=== PATIENT | male | born 1945 | race Caucasian/White ===

== ENCOUNTER → 2016-04-09 | Outpatient (CLI) | payer MEDICARE, MEDICAID ==
--- NOTE | 2016-04-09 18:32 | REP ---
Bilateral shoulder series: Six views: History: Unspecified osteoarthritis. Comparison left shoulder views are from 12/27/2009. Findings: There is old deformity of the left glenoid with prominent glenohumeral osteophyte formation, joint space narrowing, and sclerosis on the left side. This is a little more prominent than on the 2009 prior study but not new. There is also some osteoarthritic narrowing and hypertrophy at the acromioclavicular joint which is unchanged. On the right there is mild osteoarthritis of the AC joint. Glenohumeral articulation shows only minimal osteophytic lipping at the inferior margin of the humeral head. Impression: Osteoarthritis left greater than right. Question post-traumatic change left acetabulum. Bilateral AC joint osteoarthritis. Signed by Johnathan Kelley MD 04/10/2016 08:04 A
== END ==
LOC: M RAD 16:14
PROVIDERS: ATTEND Family Medicine
DX: M19.011 Primary osteoarthritis, right shoulder (principal); M19.012 Primary osteoarthritis, left shoulder

== ENCOUNTER → 2016-04-20 | Outpatient (CLI) | payer MEDICARE, MEDICAID ==
--- NOTE | 2016-04-20 15:09 | DEXA ---
AP SPINE L1 - L4 1.259 0.2 0.0 LT FEMUR TOTAL 1.246 1.0 1.2 RT FEMUR TOTAL 1.226 0.9 1.1 TOTAL BODY TOTAL OTHER DUAL FEMUR FRAX* ASSESSMENT Risk factors: History of adult fracture. 10 year probability of fracture Major osteoporotic fracture 6.9 % Hip fracture 0.5 % COMMENTS: Normal bone densitometry of the spine and hips. FOLLOW-UP: Recommendation for the next bone density exam: 5 years. MTDD
== END ==
LOC: M WHC 10:31
PROVIDERS: ATTEND Family Medicine
DX: R29.890 Loss of height (principal)

== ENCOUNTER → 2016-10-13 | Outpatient (CLI) | payer MEDICAID, MEDICARE | LOC: M LAB 09:28 | PROVIDERS: ATTEND Family Medicine | DX: Z11.59 Encounter for screening for other viral diseases (principal); E11.9 Type 2 diabetes mellitus without complications | CPT/HCPCS: 36415; 83036; G0472 ==

== ENCOUNTER → 2017-03-15 | Outpatient (CLI) | payer MEDICARE, MEDICAID | LOC: M LAB 10:02 | PROVIDERS: ATTEND Family Medicine | DX: E11.9 Type 2 diabetes mellitus without complications (principal) ==

== ENCOUNTER → 2017-06-23 | Outpatient (CLI) | payer MEDICARE | LOC: M SMT 15:48 | DX: J06.9 Acute upper respiratory infection, unspecified (principal); J98.4 Other disorders of lung | CPT/HCPCS: 71046; 80053 ==

== ENCOUNTER → 2017-06-23 | Outpatient (REF) | payer MEDICARE ==
[2017-06-23 15:38] LABS: BASO % 0.3 % (0.0-1.0); EOS # 0.1 10^3/uL (0.0-0.50); EOS % 1.3 % (0.0-3.0); HEMATOCRIT 36.3 % (42.0-52.0); HEMOGLOBIN 11.7 g/dl (14.0-18.0); IMMATURE GRANULOCYTE % 0.3 % (0-3.0); LYMPH # 1.5 10^3/uL (1.5-4.5); LYMPH % 24.7 % (24.0-44.0); MEAN CORPUSCULAR HEMOGLOBIN 29.8 pg (27.0-33.0); MEAN CORPUSCULAR HGB CONC 32.2 g/dl (32.0-36.5); MEAN CORPUSCULAR VOLUME 92.4 fl (80.0-96.0); MONO # 0.8 10^3/uL (0.0-0.8); MONO % 12.7 % (0.0-5.0); NEUTROPHILS # 3.7 10^3/uL (1.8-7.7); NEUTROPHILS % 60.7 % (36.0-66.0); PLATELET COUNT, AUTOMATED 262 10^3/uL (150-450); RED BLOOD COUNT 3.93 10^6/uL (4.30-6.10); RED CELL DISTRIBUTION WIDTH 13.6 % (11.5-14.5)
[2017-06-23 15:55] LABS: ALBUMIN 3.9 GM/DL (3.2-5.2); ALBUMIN/GLOBULIN RATIO 1.18 (1.00-1.93); ALKALINE PHOSPHATASE 88 U/L (45-117); ALT/SGPT 32 U/L (12-78); ANION GAP 5 MEQ/L (8-16); AST/SGOT 29 U/L (7-37); BILIRUBIN,TOTAL 0.3 MG/DL (0.2-1.0); BLOOD UREA NITROGEN 12 MG/DL (7-18); CARBON DIOXIDE LEVEL 29 MEQ/L (21-32); CHLORIDE LEVEL 109 MEQ/L (98-107); CREATININE FOR GFR 0.88 MG/DL (0.70-1.30); GLOMERULAR FILTRATION RATE > 60.0 (>49); GLUCOSE, FASTING 92 MG/DL (70-100); POTASSIUM SERUM 3.6 MEQ/L (3.5-5.1); SODIUM LEVEL 143 MEQ/L (136-145); TOTAL PROTEIN 7.2 GM/DL (6.4-8.2)
== END ==
LOC: M SFHCPLAZ 13:44
DX: J06.9 Acute upper respiratory infection, unspecified (principal)
CPT/HCPCS: 80053

== ENCOUNTER → 2017-07-21 | Outpatient (CLI) | payer MEDICARE ==
[2017-07-21 11:11] LABS: ALBUMIN 3.7 GM/DL (3.2-5.2); ALBUMIN/GLOBULIN RATIO 1.16 (1.00-1.93); ALKALINE PHOSPHATASE 81 U/L (45-117); ALT/SGPT 21 U/L (12-78); ANION GAP 5 MEQ/L (8-16); AST/SGOT 19 U/L (7-37); BILIRUBIN,TOTAL 0.3 MG/DL (0.2-1.0); BLOOD UREA NITROGEN 18 MG/DL (7-18); CALCIUM LEVEL 8.8 MG/DL (8.8-10.2); CARBON DIOXIDE LEVEL 30 MEQ/L (21-32); CHLORIDE LEVEL 107 MEQ/L (98-107); CHOLESTEROL LEVEL 109 MG/DL (<200); CHOLESTEROL RISK RATIO 2.056 (<5); CREATININE FOR GFR 1.06 MG/DL (0.70-1.30); GLOMERULAR FILTRATION RATE > 60.0 (>42); GLUCOSE, FASTING 85 MG/DL (70-100); HDL CHOLESTEROL 53 MG/DL (>40); NON-HDL-C 56 MG/DL; POTASSIUM SERUM 4.6 MEQ/L (3.5-5.1); SODIUM LEVEL 142 MEQ/L (136-145); TOTAL PROTEIN 6.9 GM/DL (6.4-8.2); TRIGLYCERIDES LEVEL 65 MG/DL (<150)
[2017-07-21 11:19] LABS: CREATININE, URINE 62.6 MG/DL; MALB URINE SIEMENS 17.8 MG/L; MAU/CREAT RATIO 28.4 MCG/MG (0.0-30.0)
[2017-07-24 14:12] LABS: AMPHETAMINE SCREEN, URINE Negative ng/mL (Cutoff=1000); BARBITURATES SCREEN, URINE Negative ng/mL (Cutoff=200); BENZODIAZEPINES, URINE SCREEN Negative ng/mL (Cutoff=200); CANNABINOID SCREEN, URINE Negative ng/mL (Cutoff=20); COCAINE SCREEN, URINE Negative ng/mL (Cutoff=300); CREATININE, URINE 63.5 mg/dL (20.0-300.0); METHADONE, URINE SCREEN Negative ng/mL (Cutoff=300); OPIATE SCREEN, URINE See Final Results ng/mL (Cutoff=300); OPIATES, URINE Negative ng/mL (Cutoff=300); OXYCODONE URINE Positive (.); OXYCODONE, SCREEN, URINE See Final Results ng/mL (Cutoff=100); OXYCODONE, URINE CONFIRM 4300 ng/mL (Cutoff=100); OXYCODONE/OXYMORPH, URINE Positive (Cutoff=100); OXYMORPHONE, URINE Positive (.); OXYMORPHONE, URINE CONFIRM 197 ng/mL (Cutoff=100); PCP SCREEN, URINE Negative ng/mL (Cutoff=25)
== END ==
LOC: M LAB 10:08
DX: I10 Essential (primary) hypertension (principal)
CPT/HCPCS: 80053

== ENCOUNTER → 2017-07-23 | Outpatient (REF) | payer MEDICARE ==
[2017-07-23 15:46] LABS: HEMATOCRIT 35.4 % (42.0-52.0); HEMOGLOBIN 11.7 g/dl (13.5-17.5); MEAN CORPUSCULAR HEMOGLOBIN 30.2 pg (27.0-33.0); MEAN CORPUSCULAR HGB CONC 33.1 g/dl (32.0-36.5); MEAN CORPUSCULAR VOLUME 91.5 fl (80.0-96.0); PLATELET COUNT, AUTOMATED 261 10^3/uL (150-450); RED BLOOD COUNT 3.87 10^6/uL (4.30-6.10); RED CELL DISTRIBUTION WIDTH 13.2 % (11.5-14.5); WHITE BLOOD COUNT 6.9 10^3/uL (4.0-10.0)
[2017-07-23 15:58] LABS: PSA SCREENING 0.58 NG/ML (< 4.0)
[2017-07-23 16:15] LABS: ESTIMATED AVERAGE GLUCOSE 128 MG/DL (60-110); HEMOGLOBIN A1c 6.1 %
[2017-07-23 16:18] LABS: CREATININE, URINE 84.6 MG/DL; MALB URINE SIEMENS 13.1 MG/L; MAU/CREAT RATIO 15.4 MCG/MG (0.0-30.0)
== END ==
LOC: M SFHCPLAZ 14:13
DX: E11.9 Type 2 diabetes mellitus without complications (principal); D50.0 Iron deficiency anemia secondary to blood loss (chronic); D50.8 Other iron deficiency anemias; Z12.5 Encounter for screening for malignant neoplasm of prostate; Z80.42 Family history of malignant neoplasm of prostate
CPT/HCPCS: 83036

== ENCOUNTER → 2017-09-02 | Day surgery (SDC) | payer MEDICARE ==
[~2017-09-02] MED LIST: LIDOCAINE 2% INJ 100 MG/5 ML SDV (FOR ANES.) As Ordered; PROPOFOL 200 MG/20 ML VIAL As Ordered
[2017-09-02] MEDS: NS 1,000 ML IV (11:58)
== END | disposition home or self-care (01) ==
LOC: M OPP 11:17
DX: K62.5 Hemorrhage of anus and rectum (principal); D64.9 Anemia, unspecified; D12.3 Benign neoplasm of transverse colon; D12.5 Benign neoplasm of sigmoid colon; R94.31 Abnormal electrocardiogram [ECG] [EKG]; I50.9 Heart failure, unspecified; I11.0 Hypertensive heart disease with heart failure; E78.5 Hyperlipidemia, unspecified; E11.9 Type 2 diabetes mellitus without complications; K59.00 Constipation, unspecified; M19.90 Unspecified osteoarthritis, unspecified site; M06.9 Rheumatoid arthritis, unspecified; G47.30 Sleep apnea, unspecified; E66.9 Obesity, unspecified; L40.9 Psoriasis, unspecified; F32.9 Major depressive disorder, single episode, unspecified; G62.9 Polyneuropathy, unspecified; N40.1 Benign prostatic hyperplasia with lower urinary tract symptoms; Z87.891 Personal history of nicotine dependence; Z79.899 Other long term (current) drug therapy; Z79.84 Long term (current) use of oral hypoglycemic drugs; Z88.8 Allergy status to other drugs, medicaments and biological substances
CPT/HCPCS: 45385

== ENCOUNTER → 2017-12-29 | Outpatient (CLI) | payer MEDICARE, MEDICAID ==
[2017-12-29 13:50] LABS: BASO % 0.6 % (0.0-1.0); EOS # 0.2 10^3/uL (0.0-0.50); EOS % 2.3 % (0.0-3.0); HEMATOCRIT 34.9 % (42.0-52.0); HEMOGLOBIN 11.7 g/dl (13.5-17.5); IMMATURE GRANULOCYTE % 0.4 % (0-3.0); LYMPH # 1.7 10^3/uL (1.5-4.5); LYMPH % 24.8 % (24.0-44.0); MEAN CORPUSCULAR HEMOGLOBIN 30.8 pg (27.0-33.0); MEAN CORPUSCULAR HGB CONC 33.5 g/dl (32.0-36.5); MEAN CORPUSCULAR VOLUME 91.8 fl (80.0-96.0); MONO # 0.8 10^3/uL (0.0-0.8); NEUTROPHILS # 4.1 10^3/uL (1.8-7.7); NEUTROPHILS % 59.9 % (36.0-66.0); PLATELET COUNT, AUTOMATED 237 10^3/uL (150-450); RED CELL DISTRIBUTION WIDTH 12.8 % (11.5-14.5); WHITE BLOOD COUNT 6.8 10^3/uL (4.0-10.0)
== END ==
LOC: M LAB 13:16
DX: D50.0 Iron deficiency anemia secondary to blood loss (chronic) (principal)
CPT/HCPCS: 85025

== ENCOUNTER → 2018-09-13 | Outpatient (CLI) | payer MEDICARE, MEDICAID ==
[~2018-09-13] MED LIST changes: +ASPI81TA26 PO; +ATOR80TA59 PO; +DORZ2OPD OU; +DUTA1CAP PO; +IRON65TA PO; +LATA0.0013 OU; -LIDOCAINE 2% INJ 100 MG/5 ML SDV (FOR ANES.) As Ordered; +LISI10TA4 PO; +METF10004 PO; +OXYC-517; +OXYC20TA40 PO; +PARO15TA PO; -PROPOFOL 200 MG/20 ML VIAL As Ordered; +VITA-122 PO; +VITA-5 PO; +ZALE10CA PO
[2018-09-13 10:50] LABS: HEMATOCRIT 38.2 % (42.0-52.0); HEMOGLOBIN 12.7 g/dl (13.5-17.5)
[2018-09-13 11:10] LABS: HEMOGLOBIN A1c 6.9 %
[2018-09-13 11:23] LABS: BLOOD UREA NITROGEN 17 MG/DL (7-18); CALCIUM LEVEL 9.7 MG/DL (8.8-10.2); CARBON DIOXIDE LEVEL 34 MEQ/L (21-32); CHLORIDE LEVEL 102 MEQ/L (98-107); CREATININE FOR GFR 0.99 MG/DL (0.70-1.30); GLOMERULAR FILTRATION RATE > 60.0 (>42); GLUCOSE, FASTING 92 MG/DL (70-100); POTASSIUM SERUM 4.9 MEQ/L (3.5-5.1); SODIUM LEVEL 137 MEQ/L (136-145)
[2018-09-13 11:34] LABS: CREATININE, URINE 57.6 MG/DL; MALB URINE SIEMENS 5.1 MG/L; MAU/CREAT RATIO 8.8 MCG/MG (0.0-30.0)
== END ==
LOC: M LAB 09:49
PROVIDERS: ATTEND Family Medicine
DX: E11.9 Type 2 diabetes mellitus without complications (principal)

== ENCOUNTER → 2019-03-03 | Outpatient (REF) | payer MEDICARE, MEDICAID | LOC: M SFHCPLAZ 11:38 | PROVIDERS: ATTEND Family Medicine | DX: G89.4 Chronic pain syndrome (principal) ==

== ENCOUNTER → 2019-04-26 | Outpatient (CLI) | payer MEDICARE, MEDICAID ==
[2019-04-26 10:24] LABS: HEMATOCRIT 38.4 % (42.0-52.0); HEMOGLOBIN 12.3 g/dl (13.5-17.5); MEAN CORPUSCULAR HEMOGLOBIN 29.7 pg (27.0-33.0); MEAN CORPUSCULAR VOLUME 92.8 fl (80.0-96.0); PLATELET COUNT, AUTOMATED 228 10^3/uL (150-450); RED BLOOD COUNT 4.14 10^6/uL (4.30-6.10); WHITE BLOOD COUNT 6.2 10^3/uL (4.0-10.0)
[2019-04-26 10:51] LABS: ALBUMIN 3.8 GM/DL (3.2-5.2); ALT/SGPT 27 U/L (12-78); BILIRUBIN,TOTAL 0.3 MG/DL (0.2-1.0); BLOOD UREA NITROGEN 17 MG/DL (7-18); CALCIUM LEVEL 9.2 MG/DL (8.8-10.2); CARBON DIOXIDE LEVEL 34 MEQ/L (21-32); CHLORIDE LEVEL 104 MEQ/L (98-107); CHOLESTEROL LEVEL 113 MG/DL (<200); CHOLESTEROL RISK RATIO 2.511 (<5); CREATININE FOR GFR 1.01 MG/DL (0.70-1.30); GLOMERULAR FILTRATION RATE > 60.0 (>42); GLUCOSE, FASTING 100 MG/DL (70-100); HDL CHOLESTEROL 45 MG/DL (>40); LDL CHOLESTEROL 48 MG/DL (<100); NON-HDL-C 68 MG/DL; POTASSIUM SERUM 4.6 MEQ/L (3.5-5.1); SODIUM LEVEL 139 MEQ/L (136-145); TOTAL PROTEIN 7.1 GM/DL (6.4-8.2); TRIGLYCERIDES LEVEL 100 MG/DL (<150)
[2019-04-26 10:58] LABS: CREATININE, URINE 29.4 MG/DL; MALB URINE SIEMENS < 5.0 MG/L
[2019-04-26 12:14] LABS: HEMOGLOBIN A1c 6.3 %
== END ==
LOC: M LAB 09:45
PROVIDERS: ATTEND Family Medicine
DX: E11.42 Type 2 diabetes mellitus with diabetic polyneuropathy (principal); M15.9 Polyosteoarthritis, unspecified

== ENCOUNTER 2019-09-27 11:50 | Emergency (ER) | payer MEDICARE, MEDICAID ==
[~2019-09-27] VITALS: Ht 172.7 cm; Wt 96.7 kg
[2019-09-27 11:50] VITALS: BP 189/88
[~2019-09-27 11:50] MED LIST changes: -BENA25CA4 PO; -PRED20TA PO
[2019-09-27] MEDS ORDERED: PRED20TA PO (12:21)
[2019-09-27] MEDS ORDERED: BENA25CA4 PO (12:21)
[2019-09-27] MEDS ORDERED: predniSONE 20 MG TAB PO ONE (12:30)
[2019-09-27] MEDS ORDERED: LORATADINE 10 MG TAB PO ONE (12:30)
== END 2019-09-27 12:37 | disposition home or self-care (01) ==
LOC: M ED 11:50
DX: T63.441A Toxic effect of venom of bees, accidental (unintentional), initial encounter (principal)

== ENCOUNTER → 2019-09-27 | Outpatient (CLI) | payer MEDICARE, MEDICAID ==
[~2019-09-27] MED LIST changes: +BENA25CA4 PO; -DUTA1CAP PO; +DUTA1CAP2 PO; -PARO15TA PO; +PARO30TA4 PO; +PRED20TA PO
[2019-09-27 15:23] LABS: HEMATOCRIT 39.7 % (42.0-52.0); HEMOGLOBIN 12.9 g/dl (13.5-17.5); MEAN CORPUSCULAR HEMOGLOBIN 30.9 pg (27.0-33.0); MEAN CORPUSCULAR HGB CONC 32.5 g/dl (32.0-36.5); PLATELET COUNT, AUTOMATED 247 10^3/uL (150-450); RED BLOOD COUNT 4.18 10^6/uL (4.30-6.10)
[2019-09-27 15:51] LABS: HEMOGLOBIN A1c 6.9 %
[2019-09-27 15:52] LABS: CREATININE, URINE 16.8 MG/DL; MALB URINE SIEMENS 6.1 MG/L; MAU/CREAT RATIO 36.3 MCG/MG (0.0-30.0)
== END ==
LOC: M LAB 13:00
PROVIDERS: ATTEND Family Medicine
DX: E11.21 Type 2 diabetes mellitus with diabetic nephropathy (principal); D63.8 Anemia in other chronic diseases classified elsewhere

== ENCOUNTER → 2020-01-05 | Outpatient (REF) | payer MEDICARE, MEDICAID ==
[~2020-01-05] MED LIST changes: +BENA25CA4 PO; +PRED20TA PO
[2020-01-05 16:15] LABS: CREATININE, URINE 20.4 MG/DL; MALB URINE SIEMENS < 5.0 MG/L; MAU/CREAT RATIO 24.5 MCG/MG (0.0-30.0)
== END ==
LOC: M SFHCPLAZ 14:35
PROVIDERS: ATTEND Family Medicine
DX: E11.21 Type 2 diabetes mellitus with diabetic nephropathy (principal)

== ENCOUNTER → 2020-05-06 | Outpatient (CLI) | payer MEDICARE, MEDICAID ==
[~2020-05-06] MED LIST changes: +LISI10TA22 PO; -LISI10TA4 PO
[2020-05-06 11:02] LABS: HEMATOCRIT 37.7 % (42.0-52.0); HEMOGLOBIN 12.1 g/dl (13.5-17.5); MEAN CORPUSCULAR HEMOGLOBIN 30.3 pg (27.0-33.0); MEAN CORPUSCULAR HGB CONC 32.1 g/dl (32.0-36.5); MEAN CORPUSCULAR VOLUME 94.3 fl (80.0-96.0); PLATELET COUNT, AUTOMATED 249 10^3/uL (150-450); WHITE BLOOD COUNT 5.9 10^3/uL (4.0-10.0)
[2020-05-06 12:10] LABS: ALBUMIN 3.8 GM/DL (3.2-5.2); ALT/SGPT 26 U/L (12-78); BILIRUBIN,TOTAL 0.4 MG/DL (0.2-1.0); BLOOD UREA NITROGEN 15 MG/DL (7-18); CALCIUM LEVEL 9.2 MG/DL (8.8-10.2); CARBON DIOXIDE LEVEL 28 MEQ/L (21-32); CHLORIDE LEVEL 104 MEQ/L (98-107); CHOLESTEROL LEVEL 131 MG/DL (<200); CHOLESTEROL RISK RATIO 2.298 (<5); CREATININE FOR GFR 1.12 MG/DL (0.70-1.30); FERRITIN 34 NG/ML (26-388); GLOMERULAR FILTRATION RATE > 60.0 (>42); GLUCOSE, FASTING 91 MG/DL (70-100); HDL CHOLESTEROL 57 MG/DL (>40); IRON (FE) 87 UG/DL (65-175); LDL CHOLESTEROL 55 MG/DL (<100); NON-HDL-C 74 MG/DL; PERCENT SATURATION 24.6 % (19.7-50.0); POTASSIUM SERUM 4.7 MEQ/L (3.5-5.1); SODIUM LEVEL 140 MEQ/L (136-145); TOTAL IRON BINDING CAPACITY 353 UG/DL (250-450); TOTAL PROTEIN 7.1 GM/DL (6.4-8.2); TRIGLYCERIDES LEVEL 96 MG/DL (<150)
[2020-05-06 16:16] LABS: HEMOGLOBIN A1c 6.2 %
== END ==
LOC: M LAB 10:06
PROVIDERS: ATTEND Family Medicine
DX: E11.21 Type 2 diabetes mellitus with diabetic nephropathy (principal); I11.0 Hypertensive heart disease with heart failure; E78.1 Pure hyperglyceridemia; D63.8 Anemia in other chronic diseases classified elsewhere

== ENCOUNTER → 2020-05-08 | Outpatient (REF) | payer MEDICARE, MEDICAID ==
[2020-05-08 13:40] LABS: CREATININE, URINE 41.4 MG/DL; MALB URINE SIEMENS 5.2 MG/L; MAU/CREAT RATIO 12.5 MCG/MG (0.0-30.0)
== END ==
LOC: M LAB REF 12:54
PROVIDERS: ATTEND Family Medicine
DX: E11.21 Type 2 diabetes mellitus with diabetic nephropathy (principal)

== ENCOUNTER → 2020-10-08 | Outpatient (CLI) | payer MEDICARE, MEDICAID ==
[2020-10-08 21:30] LABS: HEMOGLOBIN A1c 6.3 %
== END ==
LOC: M LAB 18:14
PROVIDERS: ATTEND Family Medicine
DX: E11.9 Type 2 diabetes mellitus without complications (principal)

== ENCOUNTER → 2021-04-24 | Outpatient (CLI) | payer MEDICARE, MEDICAID ==
[2021-04-24 17:34] LABS: HEMATOCRIT 36.4 % (42.0-52.0); HEMOGLOBIN 11.5 g/dl (13.5-17.5); MEAN CORPUSCULAR HEMOGLOBIN 29.8 pg (27.0-33.0); MEAN CORPUSCULAR HGB CONC 31.6 g/dl (32.0-36.5); MEAN CORPUSCULAR VOLUME 94.3 fl (80.0-96.0); PLATELET COUNT, AUTOMATED 249 10^3/uL (150-450); RED BLOOD COUNT 3.86 10^6/uL (4.30-6.10); WHITE BLOOD COUNT 6.8 10^3/uL (4.0-10.0)
[2021-04-24 17:47] LABS: ALT/SGPT 22 U/L (12-78); BILIRUBIN,TOTAL 0.3 MG/DL (0.2-1.0); BLOOD UREA NITROGEN 19 MG/DL (7-18); CALCIUM LEVEL 9.1 MG/DL (8.8-10.2); CARBON DIOXIDE LEVEL 30 MEQ/L (21-32); CHLORIDE LEVEL 104 MEQ/L (98-107); CHOLESTEROL LEVEL 120 MG/DL (<200); CHOLESTEROL RISK RATIO 2.307 (<5); GLOMERULAR FILTRATION RATE > 60.0 (>42); GLUCOSE, FASTING 86 MG/DL (70-100); HDL CHOLESTEROL 52 MG/DL (>40); LDL CHOLESTEROL 48 MG/DL (<100); NON-HDL-C 68 MG/DL; SODIUM LEVEL 137 MEQ/L (136-145); TOTAL PROTEIN 7.4 GM/DL (6.4-8.2); TRIGLYCERIDES LEVEL 100 MG/DL (<150)
[2021-04-24 17:52] LABS: CREATININE, URINE 15.2 MG/DL; MALB URINE SIEMENS < 5.0 MG/L; MAU/CREAT RATIO 32.8 MCG/MG (0.0-30.0)
[2021-04-24 18:30] LABS: HEMOGLOBIN A1c 6.1 %
== END ==
LOC: M LAB 16:16
PROVIDERS: ATTEND Family Medicine
DX: G89.4 Chronic pain syndrome (principal); E78.00 Pure hypercholesterolemia, unspecified

== ENCOUNTER → 2021-04-25 | Outpatient (REF) | payer MEDICARE, MEDICAID | LOC: M SFHCPLAZ 15:59 | PROVIDERS: ATTEND Family Medicine | DX: G89.4 Chronic pain syndrome (principal); M15.9 Polyosteoarthritis, unspecified; E11.21 Type 2 diabetes mellitus with diabetic nephropathy ==

== ENCOUNTER → 2022-09-18 | Outpatient (REF) | payer OTHER, MEDICAID | LOC: M SFHCPLAZ 17:31 | PROVIDERS: ATTEND Family Medicine | DX: E11.21 Type 2 diabetes mellitus with diabetic nephropathy (principal) ==

== ENCOUNTER 2023-07-22 12:40 | Emergency (ER) | payer OTHER, MEDICAID ==
[~2023-07-22] VITALS: Ht 172.7 cm; Wt 81.8 kg
[2023-07-22 13:22] LABS: BASO % 0.5 % (0.0-1.0); EOS # 0.1 10^3/uL (0.0-0.5); EOS % 1.3 % (0.0-3.0); HEMATOCRIT 37.8 % (42.0-52.0); HEMOGLOBIN 11.9 g/dl (13.5-17.5); LYMPH # 1.4 10^3/uL (1.5-5.0); LYMPH % 21.5 % (24.0-44.0); MEAN CORPUSCULAR HEMOGLOBIN 28.9 pg (27.0-33.0); MEAN CORPUSCULAR HGB CONC 31.5 g/dl (32.0-36.5); MEAN CORPUSCULAR VOLUME 91.7 fl (80.0-96.0); MONO # 0.5 10^3/uL (0.0-0.8); NEUTROPHILS # 4.3 10^3/uL (1.5-8.5); NEUTROPHILS % 68.2 % (36.0-66.0); PLATELET COUNT, AUTOMATED 234 10^3/uL (150-450); RED BLOOD COUNT 4.12 10^6/uL (4.30-6.10); WHITE BLOOD COUNT 6.3 10^3/uL (4.0-10.0)
[2023-07-22 13:49] LABS: CPK CREATINE PHOSPHOKINASE 303 U/L (46-171)
[2023-07-22 13:50] LABS: ALBUMIN 3.5 G/DL (3.2-5.2); ALKALINE PHOSPHATASE 81 U/L (46-116); ALT/SGPT 20 U/L (7.0-40); AST/SGOT 26 U/L (<34); BILIRUBIN,DIRECT 0.1 MG/DL (<0.4); BILIRUBIN,TOTAL 0.3 MG/DL (0.3-1.2); BLOOD UREA NITROGEN 22 MG/DL (9-23); CALCIUM LEVEL 9.2 MG/DL (8.3-10.6); CARBON DIOXIDE LEVEL 31 MMOL/L (20-31); CHLORIDE LEVEL 104 MMOL/L (98-107); CK-MB VALUE MASS 7.4 NG/ML (<3.6); CREATININE FOR GFR 0.98 MG/DL (0.70-1.30); GLOMERULAR FILTRATION RATE > 60.0 (>42); GLUCOSE, FASTING 111 MG/DL (74-106); MB/CK RELATIVE INDEX 2.44 (< OR =4); POTASSIUM SERUM 4.2 MMOL/L (3.5-5.1); SODIUM LEVEL 139 MMOL/L (136-145); TOTAL PROTEIN 6.5 G/DL (5.7-8.2)
[2023-07-22 13:51] LABS: THYROID STIMULATING HORMONE 0.818 uIU/ML (0.55-4.78)
[2023-07-22 13:52] LABS: FREE T4 1.19 NG/DL (0.89-1.76); INR 0.99; PARTIAL THROMBOPLASTIN TIME 27.2 SECONDS (24.8-34.2); PROTHROMBIN TIME 12.8 SECONDS (12.5-14.5)
[2023-07-22] MEDS: ONDANSETRON 4MG 2ML VIAL IV ONE (14:11)
[2023-07-22] MEDS: MECLIZINE 25 MG TABLET PO ONE (14:11)
[2023-07-22 14:56] LABS: C REACTIVE PROTEIN QUANTITATIV < 0.40 MG/DL (<1.0)
[2023-07-22 15:16] LABS: CK-MB VALUE MASS 7.1 NG/ML (<3.6)
[2023-07-22 15:18] LABS: MB/CK RELATIVE INDEX 2.29 (< OR =4)
[2023-07-22 15:24] LABS: PROCALCITONIN 0.05 ng/ml
[2023-07-22] MEDS: ALPRAZolam 0.5 MG TAB PO ONE (16:23)
[2023-07-22 18:08] VITALS: BP 163/67; TEMP 97.7; O2SAT 99
[2023-07-22] MEDS ORDERED: MECL-86 PO (18:22)
== END 2023-07-22 18:48 | disposition home or self-care (01) ==
LOC: EDBD 12:40 → M ED 12:40
DX: H81.10 Benign paroxysmal vertigo, unspecified ear (principal); I44.7 Left bundle-branch block, unspecified; I10 Essential (primary) hypertension; E78.5 Hyperlipidemia, unspecified; Z88.8 Allergy status to other drugs, medicaments and biological substances; Z79.1 Long term (current) use of non-steroidal anti-inflammatories (NSAID); Z79.84 Long term (current) use of oral hypoglycemic drugs; Z79.899 Other long term (current) drug therapy; Z79.52 Long term (current) use of systemic steroids
CPT/HCPCS: 70551; 71046; 80048; 80076; 82550; 82553; 84145; 84439; 84443; 84484; 85025; 85610; 85730; 86140; 87486; 87581; 87633; 87798; 93005; 93041; 94760; 96374; 99285; J2405

== ENCOUNTER 2023-12-27 11:27 | Observation (INO) | payer MEDICARE, MEDICAID ==
[~2023-12-27] VITALS: Ht 172.7 cm; Wt 88.2 kg
[~2023-12-27 11:27] MED LIST changes: +MECL-86 PO
[2023-12-27 12:26] LABS: BASO % 0.2 % (0.0-1.0); EOS % 0.2 % (0.0-3.0); HEMATOCRIT 41.3 % (42.0-52.0); HEMOGLOBIN 13.2 g/dl (13.5-17.5); LYMPH % 12.7 % (24.0-44.0); MEAN CORPUSCULAR VOLUME 90.8 fl (80.0-96.0); MONO # 0.7 10^3/uL (0.0-0.8); MONO % 8.1 % (2.0-8.0); NEUTROPHILS # 6.4 10^3/uL (1.5-8.5); NEUTROPHILS % 78.6 % (36.0-66.0); PLATELET COUNT, AUTOMATED 207 10^3/uL (150-450); RED BLOOD COUNT 4.55 10^6/uL (4.30-6.10); WHITE BLOOD COUNT 8.1 10^3/uL (4.0-10.0)
[2023-12-27 12:46] LABS: INR 1.09; PARTIAL THROMBOPLASTIN TIME 21.8 SECONDS (24.8-34.2); PROTHROMBIN TIME 13.7 SECONDS (12.5-14.5)
[2023-12-27 12:54] LABS: LIPASE 33 U/L (12-53)
[2023-12-27 12:56] LABS: ALBUMIN 3.6 G/DL (3.2-5.2); ALKALINE PHOSPHATASE 96 U/L (46-116); ALT/SGPT 23 U/L (7.0-40); AST/SGOT 23 U/L (<34); BILIRUBIN,DIRECT < 0.1 MG/DL (<0.4); BILIRUBIN,TOTAL 0.3 MG/DL (0.3-1.2); BLOOD UREA NITROGEN 20 MG/DL (9-23); CALCIUM LEVEL 9.5 MG/DL (8.3-10.6); CARBON DIOXIDE LEVEL 30 MMOL/L (20-31); CHLORIDE LEVEL 106 MMOL/L (98-107); CREATININE FOR GFR 1.04 MG/DL (0.70-1.30); GLOMERULAR FILTRATION RATE > 60.0 (>42); GLUCOSE, FASTING 115 MG/DL (74-106); POTASSIUM SERUM 4.1 MMOL/L (3.5-5.1); SODIUM LEVEL 141 MMOL/L (136-145); TOTAL PROTEIN 7.2 G/DL (5.7-8.2)
[2023-12-27] MEDS ORDERED: ISOVUE-370 76% 100ML VIAL As Ordered ONE (13:18)
[2023-12-27 13:30] LABS: CK-MB VALUE MASS 4.6 NG/ML (<3.6)
[2023-12-27 13:32] LABS: CPK CREATINE PHOSPHOKINASE 337 U/L (46-171); MB/CK RELATIVE INDEX 1.36 (< OR =4)
[2023-12-27] MEDS: ONDANSETRON 4MG 2ML VIAL IV ONE (14:05)
[2023-12-27 15:01] LABS: CK-MB VALUE MASS 3.6 NG/ML (<3.6); MB/CK RELATIVE INDEX 1.07 (< OR =4)
[2023-12-27 15:05] LABS: RSV AMPLIFICATION NEGATIVE (NEGATIVE)
[2023-12-27 18:00] LABS: CK-MB VALUE MASS 3.6 NG/ML (<3.6)
[2023-12-27 18:03] LABS: MB/CK RELATIVE INDEX 1.19 (< OR =4)
[2023-12-27] MEDS ORDERED: METH-1177 PO ×2 (18:42)
[2023-12-27] MEDS ORDERED: HOME MED LIST COMPLETE! XX SCH (18:45)
[2023-12-27] MEDS ORDERED: DEXTROSE 50% 50ML SYRINGE IV PRN (19:55)
[2023-12-27] MEDS ORDERED: GLUCOSE 4 GM CHEW PO PRN (19:55)
[2023-12-27] MEDS ORDERED: GLUCAGON INJ 1MG VIAL SC PRN (19:55)
[2023-12-27] MEDS ORDERED: MOM 30ML SUSPENSION UDC PO PRN (19:55)
[2023-12-27] MEDS ORDERED: MAALOX 30 ML SUSP *UDC PO PRN (19:55)
[2023-12-27] MEDS: NS 1,000 ML IV SCH (20:08)
[2023-12-27] MEDS: INSULIN LISPRO (NovoLOG) PER UNIT SC SCH (21:00)
[2023-12-27] MEDS: DOCUSATE SODIUM 100MG CAPSULE PO SCH (22:23)
[2023-12-27] MEDS: HEPARIN SOD (PORCINE) 5000UNITS/ML 1ML VIAL/SYRINGE SC SCH (22:24)
[2023-12-28] MEDS: ACETAMINOPHEN TAB 650MG DOSE (2X325MG) PO PRN (00:19)
[2023-12-28 05:28] LABS: HEMATOCRIT 38.7 % (42.0-52.0); HEMOGLOBIN 12.3 g/dl (13.5-17.5); MEAN CORPUSCULAR HEMOGLOBIN 28.9 pg (27.0-33.0); MEAN CORPUSCULAR HGB CONC 31.8 g/dl (32.0-36.5); MEAN CORPUSCULAR VOLUME 91.1 fl (80.0-96.0); PLATELET COUNT, AUTOMATED 196 10^3/uL (150-450); RED BLOOD COUNT 4.25 10^6/uL (4.30-6.10); WHITE BLOOD COUNT 7.9 10^3/uL (4.0-10.0)
[2023-12-28 05:50] LABS: ABG BASE EXCESS -0.4 (-2.0-2.0); ABG HCO3 24.6 MMOL/L (22.0-26.0); ABG O2 SATURATION 92.7 % (95.0-99.0); ABG PARTIAL PRESSURE CO2 41.6 mmHg (35.0-45.0); ABG PARTIAL PRESSURE O2 64.1 mmHg (75.0-100.0); ABG TOTAL CO2 25.8 MMOL/L (23.0-31.0); ABG pH (ARTERIAL) 7.389 UNITS (7.350-7.450)
[2023-12-28 05:53] LABS: ALBUMIN 3.1 G/DL (3.2-5.2); ALKALINE PHOSPHATASE 84 U/L (46-116); ALT/SGPT 20 U/L (7.0-40); AST/SGOT 19 U/L (<34); BILIRUBIN,TOTAL 0.3 MG/DL (0.3-1.2); BLOOD UREA NITROGEN 16 MG/DL (9-23); CALCIUM LEVEL 8.8 MG/DL (8.3-10.6); CARBON DIOXIDE LEVEL 28 MMOL/L (20-31); CHLORIDE LEVEL 107 MMOL/L (98-107); CREATININE FOR GFR 1.04 MG/DL (0.70-1.30); GLOMERULAR FILTRATION RATE > 60.0 (>42); GLUCOSE, FASTING 81 MG/DL (74-106); POTASSIUM SERUM 3.9 MMOL/L (3.5-5.1); SODIUM LEVEL 138 MMOL/L (136-145); TOTAL PROTEIN 6.4 G/DL (5.7-8.2)
[2023-12-28] MEDS: INSULIN LISPRO (NovoLOG) PER UNIT SC SCH (07:30)
[2023-12-28] MEDS: METHADONE 10MG TAB PO SCH ×2 (08:23→14:32)
[2023-12-28 14:10] VITALS: BP 140/65; TEMP 97.5; O2SAT 95
[2023-12-28 14:19] VITALS: BP 140/65; TEMP 97.5; O2SAT 95
[2023-12-28] MEDS: D5W/0.9% SODIUM CHLORIDE 1,000 ML IV SCH (14:20)
[2023-12-28 20:00] VITALS: BP 140/66; TEMP 97.7; O2SAT 96
[2023-12-28] MEDS: NYSTATIN 100,000 UNITS/GM TOPICAL PWD 15GM TOP SCH (21:00)
[2023-12-29] MEDS: ONDANSETRON 4MG TAB PO PRN (00:34)
[2023-12-29 04:00] VITALS: BP 141/61; TEMP 97.7; O2SAT 94
[2023-12-29 05:32] LABS: HEMATOCRIT 41.4 % (42.0-52.0); HEMOGLOBIN 12.6 g/dl (13.5-17.5); MEAN CORPUSCULAR HEMOGLOBIN 28.7 pg (27.0-33.0); MEAN CORPUSCULAR HGB CONC 30.4 g/dl (32.0-36.5); MEAN CORPUSCULAR VOLUME 94.3 fl (80.0-96.0); PLATELET COUNT, AUTOMATED 190 10^3/uL (150-450); RED BLOOD COUNT 4.39 10^6/uL (4.30-6.10); WHITE BLOOD COUNT 6.9 10^3/uL (4.0-10.0)
[2023-12-29 05:55] VITALS: BP 148/66
[2023-12-29 05:55] LABS: ALBUMIN 3.2 G/DL (3.2-5.2); ALKALINE PHOSPHATASE 92 U/L (46-116); ALT/SGPT 21 U/L (7.0-40); AST/SGOT 20 U/L (<34); BILIRUBIN,TOTAL 0.2 MG/DL (0.3-1.2); BLOOD UREA NITROGEN 21 MG/DL (9-23); CARBON DIOXIDE LEVEL 31 MMOL/L (20-31); CHLORIDE LEVEL 107 MMOL/L (98-107); CREATININE FOR GFR 1.12 MG/DL (0.70-1.30); GLOMERULAR FILTRATION RATE > 60.0 (>42); GLUCOSE, FASTING 94 MG/DL (74-106); POTASSIUM SERUM 4.5 MMOL/L (3.5-5.1); SODIUM LEVEL 141 MMOL/L (136-145); TOTAL PROTEIN 6.8 G/DL (5.7-8.2)
[2023-12-29 05:58] VITALS: BP_SYST 145; BP_SYST 147; BP_DIAS 64; BP_DIAS 65
[2023-12-29 06:00] VITALS: BP_SYST 145; BP_SYST 147; BP_SYST 148; BP_DIAS 64; BP_DIAS 65; BP_DIAS 66
[2023-12-29] MEDS: FLUBLOK(EGGFREE) TRIVAL(24-25) VACCINE PF 0.5ML SYRINGE 18YRS & OLDER IM.IMMUN ONE (08:34)
[2023-12-29] MEDS: DAPAGLIFLOZIN PROPANEDIOL 10MG TABLET (FARXIGA) PO SCH (09:34)
[2023-12-29] MEDS: CARVedilol 3.125 MG TAB PO SCH (09:39)
[2023-12-29] MEDS ORDERED: PILL CUTTER 1 EACH XX ONE (09:42)
[2023-12-29] MEDS: ENTRESTO 24-26MG TABLET (SACUBITRIL/VALSARTAN) PO SCH (09:44)
[2023-12-29 12:00] VITALS: BP 96/55; TEMP 96.6; O2SAT 90
[2023-12-29 19:58] VITALS: BP 132/52; TEMP 97.6; O2SAT 96
[2023-12-29] MEDS ORDERED: CARVedilol 3.125 MG TAB PO SCH (21:00)
[2023-12-29] MEDS ORDERED: ENTRESTO 24-26MG TABLET (SACUBITRIL/VALSARTAN) PO SCH (21:00)
[2023-12-29] MEDS: RAMELTEON 8 MG TAB (ROZEREM) PO SCH (21:25)
[2023-12-30 03:46] VITALS: BP 135/67; TEMP 97.3; O2SAT 98
[2023-12-30 05:54] LABS: HEMATOCRIT 39.1 % (42.0-52.0); HEMOGLOBIN 11.8 g/dl (13.5-17.5); MEAN CORPUSCULAR HEMOGLOBIN 28.4 pg (27.0-33.0); MEAN CORPUSCULAR HGB CONC 30.2 g/dl (32.0-36.5); MEAN CORPUSCULAR VOLUME 94.2 fl (80.0-96.0); PLATELET COUNT, AUTOMATED 193 10^3/uL (150-450); RED BLOOD COUNT 4.15 10^6/uL (4.30-6.10); WHITE BLOOD COUNT 5.8 10^3/uL (4.0-10.0)
[2023-12-30 06:19] LABS: ALBUMIN 2.8 G/DL (3.2-5.2); BILIRUBIN,TOTAL 0.2 MG/DL (0.3-1.2); CALCIUM LEVEL 8.8 MG/DL (8.3-10.6); CREATININE FOR GFR 1.33 MG/DL (0.70-1.30); GLOMERULAR FILTRATION RATE 55.7 (>42); POTASSIUM SERUM 4.3 MMOL/L (3.5-5.1); TOTAL PROTEIN 6.3 G/DL (5.7-8.2)
[2023-12-30] MEDS: VENLAFAXINE **XR** 37.5 MG CAPSULE PO SCH (09:10)
[2023-12-30 14:00] VITALS: BP 109/54; TEMP 97.3; O2SAT 94
[2023-12-30 19:59] VITALS: BP 114/53; TEMP 97.5; O2SAT 95
[2023-12-30] MEDS ORDERED: ENTR1TAB PO (20:09)
[2023-12-30] MEDS ORDERED: FARX1TAB3 PO (20:09)
[2023-12-30] MEDS ORDERED: COLA100C5 PO (20:09)
[2023-12-30] MEDS ORDERED: VENL37.598 PO (20:09)
[2023-12-31 04:00] VITALS: BP 125/55; TEMP 97.7; O2SAT 96
[2023-12-31 06:24] LABS: HEMATOCRIT 38.5 % (42.0-52.0); MEAN CORPUSCULAR HEMOGLOBIN 28.6 pg (27.0-33.0); MEAN CORPUSCULAR HGB CONC 31.2 g/dl (32.0-36.5); MEAN CORPUSCULAR VOLUME 91.7 fl (80.0-96.0); PLATELET COUNT, AUTOMATED 200 10^3/uL (150-450); WHITE BLOOD COUNT 5.9 10^3/uL (4.0-10.0)
[2023-12-31 07:01] LABS: ALBUMIN 2.8 G/DL (3.2-5.2); ALKALINE PHOSPHATASE 85 U/L (46-116); ALT/SGPT 16 U/L (7.0-40); AST/SGOT 11 U/L (<34); BILIRUBIN,TOTAL 0.2 MG/DL (0.3-1.2); BLOOD UREA NITROGEN 21 MG/DL (9-23); CALCIUM LEVEL 8.8 MG/DL (8.3-10.6); CARBON DIOXIDE LEVEL 31 MMOL/L (20-31); CHLORIDE LEVEL 105 MMOL/L (98-107); CREATININE FOR GFR 1.17 MG/DL (0.70-1.30); GLOMERULAR FILTRATION RATE > 60.0 (>42); GLUCOSE, FASTING 85 MG/DL (74-106); POTASSIUM SERUM 4.4 MMOL/L (3.5-5.1); SODIUM LEVEL 138 MMOL/L (136-145); TOTAL PROTEIN 6.1 G/DL (5.7-8.2)
[2023-12-31 08:20] VITALS: BP 128/59
== END 2023-12-31 12:19 | disposition home health service (06) ==
LOC: M ED 11:27 → EDBD 11:27 → M ED INP 19:51 → INTOOBSV 19:51 → M MSPAV 12-28 14:07
PROVIDERS: ADMIT Internal Medicine; ATTEND Internal Medicine
DX: R26.81 Unsteadiness on feet (principal); Z91.148 Patient's other noncompliance with medication regimen for other reason; R42 Dizziness and giddiness; J96.01 Acute respiratory failure with hypoxia; R53.1 Weakness; Z74.2 Need for assistance at home and no other household member able to render care; R10.9 Unspecified abdominal pain; E11.649 Type 2 diabetes mellitus with hypoglycemia without coma; I11.0 Hypertensive heart disease with heart failure; I50.22 Chronic systolic (congestive) heart failure; R94.4 Abnormal results of kidney function studies; F32.A Depression, unspecified; R45.89 Other symptoms and signs involving emotional state; F40.8 Other phobic anxiety disorders; G31.84 Mild cognitive impairment of uncertain or unknown etiology; G31.1 Senile degeneration of brain, not elsewhere classified; I67.82 Cerebral ischemia; M47.812 Spondylosis without myelopathy or radiculopathy, cervical region; R00.1 Bradycardia, unspecified; I44.7 Left bundle-branch block, unspecified; I49.3 Ventricular premature depolarization; M19.90 Unspecified osteoarthritis, unspecified site; L40.9 Psoriasis, unspecified; N40.0 Benign prostatic hyperplasia without lower urinary tract symptoms; F11.11 Opioid abuse, in remission; R29.6 Repeated falls; R51.9 Headache, unspecified; G47.00 Insomnia, unspecified; R11.0 Nausea; Z82.3 Family history of stroke; Z81.1 Family history of alcohol abuse and dependence; Z81.8 Family history of other mental and behavioral disorders; Z80.42 Family history of malignant neoplasm of prostate; Z81.3 Family history of other psychoactive substance abuse and dependence; Z80.3 Family history of malignant neoplasm of breast; Z82.0 Family history of epilepsy and other diseases of the nervous system; Z79.891 Long term (current) use of opiate analgesic; Z88.8 Allergy status to other drugs, medicaments and biological substances; Z87.891 Personal history of nicotine dependence
CPT/HCPCS: 36415; 36600; 70450; 70544; 70551; 71046; 71250; 72125; 74177; 80047; 80048; 80053; 80076; 81001; 82550; 82553; 82803; 83690; 83735; 83880; 84484; 85025; 85027; 85610; 85730; 87631; 93005; 93306; 96361; 96372; 96374; 97116; 97161; 97165; 97530; 97535; 99285; G0378; J2405; Q9967

== ENCOUNTER 2024-01-09 05:34 | Inpatient (IN) | payer MEDICARE, MEDICAID ==
[2024-01-09] VITALS (17 sets, daily range): BP systolic 109–147; BP diastolic 53–76; TEMP 97.3–97.9; O2SAT 88–98
[~2024-01-09] VITALS: Ht 174 cm; Wt 86.0 kg
[~2024-01-09 05:34] MED LIST changes: +COLA100C5 PO; +ENTR1TAB PO; +FARX1TAB3 PO; +METH-1177 PO; +VENL37.598 PO
[2024-01-09 06:07] LABS: ABG HCO3 22.6 MMOL/L (22.0-26.0); ABG O2 SATURATION 94.1 % (95.0-99.0); ABG PARTIAL PRESSURE CO2 52.3 mmHg (35.0-45.0); ABG STANDARD HCO3 20.3 MMOL/L. (22.0-26.0); ABG TOTAL CO2 24.2 MMOL/L (23.0-31.0); ABG pH (ARTERIAL) 7.253 UNITS (7.350-7.450)
[2024-01-09 06:28] LABS: BASO % 0.3 % (0.0-1.0); EOS # 0.2 10^3/uL (0.0-0.5); EOS % 1.5 % (0.0-3.0); HEMATOCRIT 40.4 % (42.0-52.0); HEMOGLOBIN 12.7 g/dl (13.5-17.5); LYMPH # 3.2 10^3/uL (1.5-5.0); LYMPH % 26.8 % (24.0-44.0); MEAN CORPUSCULAR HEMOGLOBIN 29.1 pg (27.0-33.0); MEAN CORPUSCULAR HGB CONC 31.4 g/dl (32.0-36.5); MEAN CORPUSCULAR VOLUME 92.7 fl (80.0-96.0); MONO # 1.1 10^3/uL (0.0-0.8); MONO % 9.5 % (2.0-8.0); NEUTROPHILS # 7.3 10^3/uL (1.5-8.5); NEUTROPHILS % 61.1 % (36.0-66.0); PLATELET COUNT, AUTOMATED 225 10^3/uL (150-450); RED BLOOD COUNT 4.36 10^6/uL (4.30-6.10); WHITE BLOOD COUNT 11.9 10^3/uL (4.0-10.0)
[2024-01-09 06:40] LABS: PROCALCITONIN 0.22 ng/ml
[2024-01-09 06:55] LABS: CK-MB VALUE MASS 2.1 NG/ML (<3.6); MB/CK RELATIVE INDEX 1.35 (< OR =4)
[2024-01-09] MEDS: NS 1,000 ML IV ONE (07:13)
[2024-01-09] MEDS ORDERED: DOXYCYCLINE HYCLATE 100 MG in DEXTROSE 5% (D5W) MINI-BAG PLU 100 ML IV ONE (07:20)
[2024-01-09] MEDS ORDERED: CEFEPIME HCL 2 GM in DEXTROSE 5% (D5W) ADV/MINI-BAG 50 ML IV ONE (07:20)
[2024-01-09] MEDS ORDERED: COMBIVENT RESPIMAT 100-20MCG INHALER 4GM INH SCH (07:35)
[2024-01-09] MEDS ORDERED: ENTR1TAB PO (07:40)
[2024-01-09] MEDS ORDERED: VENL37.598 PO (07:40)
[2024-01-09] MEDS ORDERED: FARX1TAB3 PO (07:40)
[2024-01-09] MEDS ORDERED: BUPR150T12 PO (07:40)
[2024-01-09] MEDS ORDERED: HOME MED LIST COMPLETE! XX SCH (07:45)
[2024-01-09] MEDS: AZITHROMYCIN INJ 500 MG, VIAL MATE ADAPTER 1 EACH in D5W 250 ML IV ONE (07:57)
[2024-01-09] MEDS: cefTRIAXone SOD 2 GM in DEXTROSE 5% (D5W) ADV/MINI-BAG 50 ML IV ONE (07:57)
[2024-01-09] MEDS: ALBUTEROL SULFATE 2.5MG/0.5ML INH NEB SOLN INH ONE (08:04)
[2024-01-09] MEDS: IPRATROPIUM 0.5MG/ALBUTEROL 2.5MG INH SOL UD 3ML (DUONEB) NEB ONE (08:04)
[2024-01-09 08:29] LABS: ALBUMIN 2.6 G/DL (3.2-5.2); BILIRUBIN,DIRECT 0.2 MG/DL (<0.4); BILIRUBIN,TOTAL 0.3 MG/DL (0.3-1.2); CALCIUM LEVEL 8.6 MG/DL (8.3-10.6); CK-MB VALUE MASS 2.9 NG/ML (<3.6); CREATININE FOR GFR 1.43 MG/DL (0.70-1.30); GLOMERULAR FILTRATION RATE 51.2 (>42); MB/CK RELATIVE INDEX 3.71 (< OR =4); POTASSIUM SERUM 4.1 MMOL/L (3.5-5.1); TOTAL PROTEIN 6.3 G/DL (5.7-8.2)
[2024-01-09] MEDS ORDERED: ISOVUE-370 76% 100ML VIAL As Ordered ONE (08:48)
[2024-01-09] MEDS: ASPIRIN 81MG CHEW TABLET PO ONE (09:14)
[2024-01-09 09:35] LABS: VENOUS BASE EXCESS -2.6 (-2.0-2.0); VENOUS HCO3 24.9 MMOL/L (23.0-27.0); VENOUS O2 SATURATION 86.3 % (60.0-80.0); VENOUS PARTIAL PRESSURE CO2 55.4 mmHg (38.0-50.0); VENOUS PARTIAL PRESSURE O2 56.4 mmHg (30.0-50.0); VENOUS STANDARD HCO3 22.1 MMOL/L; VENOUS TOTAL CO2 26.6 MMOL/L (24.0-28.0)
[2024-01-09 10:12] LABS: CK-MB VALUE MASS 4.2 NG/ML (<3.6)
[2024-01-09 10:13] LABS: MB/CK RELATIVE INDEX 5.18 (< OR =4)
[2024-01-09] MEDS: HEPARIN SOD (PORCINE) 5000UNITS/ML 1ML VIAL/SYRINGE SC SCH (13:29)
[2024-01-09] MEDS: FORMOTEROL FUMARATE 20 MCG/2 ML INHALATION SOLUTION (PERFOROMIST) INH ONE (14:14)
[2024-01-09] MEDS: BUDESONIDE 0.5 MG/2 ML INHALATION SUSPENSION NEB ONE (14:14)
[2024-01-09] MEDS ORDERED: PILL CUTTER 1 EACH XX ONE (16:04)
[2024-01-09] MEDS: DAPAGLIFLOZIN PROPANEDIOL 10MG TABLET (FARXIGA) PO SCH (16:10)
[2024-01-09] MEDS: METHADONE 10MG TAB PO SCH (16:10)
[2024-01-09] MEDS: VENLAFAXINE **XR** 37.5 MG CAPSULE PO SCH (16:10)
[2024-01-09] MEDS: buPROPion **XL** TABLET 150MG (WELLBUTRIN XL) PO SCH (16:10)
[2024-01-09] MEDS: ATORVASTATIN 20 MG TAB PO SCH (16:10)
[2024-01-09 17:29] LABS: MAGNESIUM LEVEL 2.4 MG/DL (1.8-2.4)
[2024-01-09] MEDS: ONDANSETRON 4MG 2ML VIAL IV ONE (18:00)
[2024-01-09] MEDS: MAG SULF 1GM/100ML (MAG RUN) 1 GM in IV 1 EA IV ONE (18:11)
[2024-01-09] MEDS: SYMBICORT 80/4.5MCG INHALER 6GM INH SCH (19:43)
[2024-01-09] MEDS: RAMELTEON 8 MG TAB (ROZEREM) PO PRN (21:45)
[2024-01-10] VITALS (11 sets, daily range): BP systolic 109–143; BP diastolic 55–69; TEMP 96.9–97.6; O2SAT 90–97
[2024-01-10] MEDS: ACETAMINOPHEN 325 MG TAB PO PRN (00:09)
[2024-01-10 04:36] LABS: VENOUS BASE EXCESS -2.3 (-2.0-2.0); VENOUS HCO3 24.8 MMOL/L (23.0-27.0); VENOUS O2 SATURATION 79.1 % (60.0-80.0); VENOUS PARTIAL PRESSURE CO2 53.2 mmHg (38.0-50.0); VENOUS PARTIAL PRESSURE O2 46.8 mmHg (30.0-50.0); VENOUS PH 7.287 UNITS (7.330-7.430); VENOUS STANDARD HCO3 22.2 MMOL/L; VENOUS TOTAL CO2 26.5 MMOL/L (24.0-28.0)
[2024-01-10 04:44] LABS: BASO % 0.1 % (0.0-1.0); HEMATOCRIT 34.7 % (42.0-52.0); HEMOGLOBIN 10.9 g/dl (13.5-17.5); LYMPH # 0.6 10^3/uL (1.5-5.0); LYMPH % 5.8 % (24.0-44.0); MEAN CORPUSCULAR HEMOGLOBIN 28.2 pg (27.0-33.0); MEAN CORPUSCULAR HGB CONC 31.4 g/dl (32.0-36.5); MEAN CORPUSCULAR VOLUME 89.9 fl (80.0-96.0); MONO # 0.6 10^3/uL (0.0-0.8); MONO % 5.4 % (2.0-8.0); NEUTROPHILS # 9.3 10^3/uL (1.5-8.5); NEUTROPHILS % 87.9 % (36.0-66.0); PLATELET COUNT, AUTOMATED 261 10^3/uL (150-450); RED BLOOD COUNT 3.86 10^6/uL (4.30-6.10); WHITE BLOOD COUNT 10.5 10^3/uL (4.0-10.0)
[2024-01-10 05:13] LABS: ALBUMIN 2.5 G/DL (3.2-5.2); BILIRUBIN,TOTAL 0.2 MG/DL (0.3-1.2); CALCIUM LEVEL 9.4 MG/DL (8.3-10.6); CREATININE FOR GFR 1.31 MG/DL (0.70-1.30); GLOMERULAR FILTRATION RATE 56.6 (>42); MAGNESIUM LEVEL 2.6 MG/DL (1.8-2.4); POTASSIUM SERUM 4.4 MMOL/L (3.5-5.1); TOTAL PROTEIN 6.3 G/DL (5.7-8.2)
[2024-01-10] MEDS: DOXYCYCLINE HYCLATE 100MG TABLET PO SCH (07:59)
[2024-01-10] MEDS: CEFDINIR 300 MG CAP (OMNICEF) PO SCH (08:00)
[2024-01-10] MEDS: METHADONE 10MG TAB PO SCH (08:00)
[2024-01-10] MEDS ORDERED: MAGNESIUM SULFATE IN WATER 2 GM in IV 1 EA IV PRN (17:10)
[2024-01-10 17:16] LABS: IONIZED CALCIUM 4.8 MG/DL (4.5-5.3)
[2024-01-10 17:47] LABS: CK-MB VALUE MASS 2.3 NG/ML (<3.6); MAGNESIUM LEVEL 2.6 MG/DL (1.8-2.4); MB/CK RELATIVE INDEX 3.48 (< OR =4); POTASSIUM SERUM 4.6 MMOL/L (3.5-5.1)
[2024-01-10 17:51] LABS: FREE T3 2.6 PG/ML (2.3-4.2); FREE T4 1.49 NG/DL (0.89-1.76); THYROID STIMULATING HORMONE 0.281 uIU/ML (0.55-4.78)
[2024-01-10 23:04] LABS: IONIZED CALCIUM 4.7 MG/DL (4.5-5.3)
[2024-01-10 23:32] LABS: MAGNESIUM LEVEL 2.4 MG/DL (1.8-2.4); POTASSIUM SERUM 5.3 MMOL/L (3.5-5.1)
[2024-01-11] VITALS (7 sets, daily range): BP systolic 142–166; BP diastolic 61–80; TEMP 96.9–98.3; O2SAT 94–97
[2024-01-11 04:47] LABS: IONIZED CALCIUM 4.8 MG/DL (4.5-5.3)
[2024-01-11 05:11] LABS: MAGNESIUM LEVEL 2.3 MG/DL (1.8-2.4); POTASSIUM SERUM 4.6 MMOL/L (3.5-5.1)
[2024-01-11 08:34] LABS: BASO % 0.2 % (0.0-1.0); EOS % 0.4 % (0.0-3.0); HEMATOCRIT 34.5 % (42.0-52.0); HEMOGLOBIN 10.8 g/dl (13.5-17.5); LYMPH # 1.5 10^3/uL (1.5-5.0); MEAN CORPUSCULAR HEMOGLOBIN 28.5 pg (27.0-33.0); MEAN CORPUSCULAR HGB CONC 31.3 g/dl (32.0-36.5); MONO # 0.6 10^3/uL (0.0-0.8); MONO % 5.8 % (2.0-8.0); NEUTROPHILS # 7.6 10^3/uL (1.5-8.5); NEUTROPHILS % 77.8 % (36.0-66.0); PLATELET COUNT, AUTOMATED 289 10^3/uL (150-450); RED BLOOD COUNT 3.79 10^6/uL (4.30-6.10); WHITE BLOOD COUNT 9.7 10^3/uL (4.0-10.0)
[2024-01-11 08:59] LABS: CK-MB VALUE MASS 1.6 NG/ML (<3.6)
[2024-01-11 09:00] LABS: BLOOD UREA NITROGEN 31 MG/DL (9-23); CALCIUM LEVEL 9.2 MG/DL (8.3-10.6); CARBON DIOXIDE LEVEL 30 MMOL/L (20-31); CHLORIDE LEVEL 107 MMOL/L (98-107); CREATININE FOR GFR 1.22 MG/DL (0.70-1.30); GLOMERULAR FILTRATION RATE > 60.0 (>42); GLUCOSE, FASTING 88 MG/DL (74-106); POTASSIUM SERUM 4.4 MMOL/L (3.5-5.1); SODIUM LEVEL 140 MMOL/L (136-145)
[2024-01-11] MEDS: SPIRONOLACTONE 6.25 MG PER 1/4 TAB PO SCH (09:00)
[2024-01-11] MEDS: ASPIRIN 81MG ENTERIC TABLET PO SCH (09:00)
[2024-01-11 09:05] LABS: CPK CREATINE PHOSPHOKINASE 56 U/L (46-171); MB/CK RELATIVE INDEX 2.85 (< OR =4)
[2024-01-11] MEDS: METHADONE 10MG TAB PO ONE ×2 (11:56→22:02)
[2024-01-11] MEDS: DEXTROSE 50% 50ML SYRINGE IV STA (12:42)
[2024-01-11] MEDS: VENLAFAXINE **XR** 37.5 MG CAPSULE PO SCH (13:00)
[2024-01-11] MEDS: lisinopriL 5 MG TAB PO SCH (22:05)
[2024-01-12] VITALS (7 sets, daily range): BP systolic 121–168; BP diastolic 58–77; TEMP 96.6–98.7; O2SAT 92–98
[2024-01-12] MEDS: DEXTROSE 50% 50ML SYRINGE IV STA (07:51)
[2024-01-12 08:05] LABS: IONIZED CALCIUM 3.6 MG/DL (4.5-5.3)
[2024-01-12 08:09] LABS: BASO % 0.5 % (0.0-1.0); EOS # 0.1 10^3/uL (0.0-0.5); EOS % 1.2 % (0.0-3.0); HEMATOCRIT 38.4 % (42.0-52.0); HEMOGLOBIN 11.8 g/dl (13.5-17.5); LYMPH # 1.9 10^3/uL (1.5-5.0); LYMPH % 23.6 % (24.0-44.0); MEAN CORPUSCULAR HEMOGLOBIN 28.6 pg (27.0-33.0); MEAN CORPUSCULAR HGB CONC 30.7 g/dl (32.0-36.5); MEAN CORPUSCULAR VOLUME 93.2 fl (80.0-96.0); MONO # 0.6 10^3/uL (0.0-0.8); MONO % 7.5 % (2.0-8.0); NEUTROPHILS # 5.3 10^3/uL (1.5-8.5); NEUTROPHILS % 64.9 % (36.0-66.0); PLATELET COUNT, AUTOMATED 296 10^3/uL (150-450); RED BLOOD COUNT 4.12 10^6/uL (4.30-6.10); WHITE BLOOD COUNT 8.1 10^3/uL (4.0-10.0)
[2024-01-12] MEDS: METHADONE 10MG TAB PO SCH ×2 (08:23→13:47)
[2024-01-12 08:29] LABS: CK-MB VALUE MASS 1.5 NG/ML (<3.6)
[2024-01-12 08:37] LABS: BLOOD UREA NITROGEN 24 MG/DL (9-23); CALCIUM LEVEL 9.1 MG/DL (8.3-10.6); CARBON DIOXIDE LEVEL 29 MMOL/L (20-31); CHLORIDE LEVEL 105 MMOL/L (98-107); CPK CREATINE PHOSPHOKINASE 49 U/L (46-171); CREATININE FOR GFR 1.04 MG/DL (0.70-1.30); GLOMERULAR FILTRATION RATE > 60.0 (>42); GLUCOSE, FASTING 232 MG/DL (74-106); MAGNESIUM LEVEL 2.1 MG/DL (1.8-2.4); MB/CK RELATIVE INDEX 3.06 (< OR =4); POTASSIUM SERUM 5.4 MMOL/L (3.5-5.1); SODIUM LEVEL 137 MMOL/L (136-145)
[2024-01-12] MEDS: FUROSEMIDE 40MG/4ML VIAL IV ONE (10:15)
[2024-01-12] MEDS: ISOSORBIDE DIN (ISORDIL) 10MG TAB PO SCH (11:00)
[2024-01-12] MEDS: **hydrALAZINE** 10 MG TAB PO SCH (13:00)
[2024-01-12] MEDS: ANUSOL HC CREAM 30GM TOP PRN (20:59)
[2024-01-13 01:06] VITALS: BP 127/56
[2024-01-13 04:00] VITALS: BP 131/57; TEMP 97.7; O2SAT 96
[2024-01-13 07:45] LABS: ALBUMIN 2.7 G/DL (3.2-5.2); BILIRUBIN,TOTAL 0.3 MG/DL (0.3-1.2); CALCIUM LEVEL 9.3 MG/DL (8.3-10.6); CREATININE FOR GFR 1.31 MG/DL (0.70-1.30); GLOMERULAR FILTRATION RATE 56.6 (>42); POTASSIUM SERUM 4.2 MMOL/L (3.5-5.1); TOTAL PROTEIN 6.5 G/DL (5.7-8.2)
[2024-01-13] MEDS ORDERED: ENTRESTO 24-26MG TABLET (SACUBITRIL/VALSARTAN) PO SCH ×2 (09:00→21:00)
[2024-01-13] MEDS: PROMETHAZINE 25MG/ML 1ML VIAL IV PRN (09:09)
[2024-01-13 10:30] VITALS: BP 152/72; TEMP 97.7; O2SAT 94
[2024-01-13 12:00] VITALS: BP 106/64; TEMP 97.5; O2SAT 95
[2024-01-13 14:34] LABS: IONIZED CALCIUM 4.8 MG/DL (4.5-5.3)
[2024-01-13 14:52] LABS: ABG BASE EXCESS 2.1 (-2.0-2.0); ABG HCO3 25.3 MMOL/L (22.0-26.0); ABG O2 SATURATION 93.7 % (95.0-99.0); ABG PARTIAL PRESSURE O2 63.3 mmHg (75.0-100.0); ABG STANDARD HCO3 26.2 MMOL/L. (22.0-26.0); ABG TOTAL CO2 26.4 MMOL/L (23.0-31.0); ABG pH (ARTERIAL) 7.477 UNITS (7.350-7.450)
[2024-01-13 15:11] LABS: CK-MB VALUE MASS 1.9 NG/ML (<3.6); POTASSIUM SERUM 4.2 MMOL/L (3.5-5.1)
[2024-01-13 15:17] LABS: MB/CK RELATIVE INDEX 1.75 (< OR =4)
[2024-01-13 19:50] VITALS: BP 111/62; TEMP 97.5; O2SAT 93
[2024-01-13] MEDS: LIDOCAINE 5% (LIDODERM) PATCH TD SCH (22:47)
[2024-01-14] VITALS (8 sets, daily range): BP systolic 100–152; BP diastolic 50–72; TEMP 97.5–97.9; O2SAT 95–96
[2024-01-14 05:28] LABS: BASO % 0.3 % (0.0-1.0); EOS # 0.1 10^3/uL (0.0-0.5); EOS % 1.1 % (0.0-3.0); HEMATOCRIT 36.1 % (42.0-52.0); HEMOGLOBIN 11.4 g/dl (13.5-17.5); LYMPH # 1.7 10^3/uL (1.5-5.0); LYMPH % 15.5 % (24.0-44.0); MEAN CORPUSCULAR HEMOGLOBIN 28.5 pg (27.0-33.0); MEAN CORPUSCULAR HGB CONC 31.6 g/dl (32.0-36.5); MEAN CORPUSCULAR VOLUME 90.3 fl (80.0-96.0); MONO # 0.7 10^3/uL (0.0-0.8); MONO % 6.6 % (2.0-8.0); NEUTROPHILS # 7.9 10^3/uL (1.5-8.5); NEUTROPHILS % 74.1 % (36.0-66.0); PLATELET COUNT, AUTOMATED 356 10^3/uL (150-450); WHITE BLOOD COUNT 10.7 10^3/uL (4.0-10.0)
[2024-01-14 05:51] LABS: BLOOD UREA NITROGEN 21 MG/DL (9-23); CALCIUM LEVEL 9.4 MG/DL (8.3-10.6); CARBON DIOXIDE LEVEL 30 MMOL/L (20-31); CHLORIDE LEVEL 107 MMOL/L (98-107); CREATININE FOR GFR 1.18 MG/DL (0.70-1.30); GLOMERULAR FILTRATION RATE > 60.0 (>42); GLUCOSE, FASTING 82 MG/DL (74-106); MAGNESIUM LEVEL 2.1 MG/DL (1.8-2.4); POTASSIUM SERUM 4.3 MMOL/L (3.5-5.1); SODIUM LEVEL 143 MMOL/L (136-145)
[2024-01-15] VITALS (18 sets, daily range): BP systolic 98–138; BP diastolic 42–62; TEMP 97.6–98.7; O2SAT 86–96
[2024-01-15 05:14] LABS: BASO # 0.1 10^3/uL (0.0-0.2); BASO % 0.6 % (0.0-1.0); EOS # 0.2 10^3/uL (0.0-0.5); EOS % 2.2 % (0.0-3.0); HEMATOCRIT 35.9 % (42.0-52.0); LYMPH # 1.9 10^3/uL (1.5-5.0); LYMPH % 20.1 % (24.0-44.0); MEAN CORPUSCULAR HGB CONC 30.6 g/dl (32.0-36.5); MEAN CORPUSCULAR VOLUME 91.3 fl (80.0-96.0); MONO # 0.6 10^3/uL (0.0-0.8); MONO % 6.6 % (2.0-8.0); NEUTROPHILS # 6.3 10^3/uL (1.5-8.5); NEUTROPHILS % 67.6 % (36.0-66.0); PLATELET COUNT, AUTOMATED 334 10^3/uL (150-450); RED BLOOD COUNT 3.93 10^6/uL (4.30-6.10); WHITE BLOOD COUNT 9.4 10^3/uL (4.0-10.0)
[2024-01-15 05:43] LABS: CALCIUM LEVEL 9.3 MG/DL (8.3-10.6); CREATININE FOR GFR 1.41 MG/DL (0.70-1.30); MAGNESIUM LEVEL 2.1 MG/DL (1.8-2.4); POTASSIUM SERUM 4.5 MMOL/L (3.5-5.1)
[2024-01-15] MEDS ORDERED: **hydrALAZINE** 10 MG TAB PO SCH (09:00)
[2024-01-15] MEDS ORDERED: ISOSORBIDE DIN (ISORDIL) 10MG TAB PO SCH (09:00)
[2024-01-15] MEDS: MIDODRINE 5 MG TAB PO ONE (12:00)
[2024-01-15] MEDS: NS 500 ML IV ONE (12:16)
[2024-01-15] MEDS: ALBUTEROL SULFATE 2.5MG/0.5ML INH NEB SOLN NEB PRN (21:22)
[2024-01-15] MEDS: ALBUTEROL SULFATE 2.5MG/0.5ML INH NEB SOLN NEB ONE (23:29)
[2024-01-15] MEDS: methylPREDNISolone 125MG 2ML VIAL IV ONE (23:40)
[2024-01-15 23:43] LABS: ABG BASE EXCESS 2.9 (-2.0-2.0); ABG HCO3 28.3 MMOL/L (22.0-26.0); ABG O2 SATURATION 93.5 % (95.0-99.0); ABG PARTIAL PRESSURE CO2 47.1 mmHg (35.0-45.0); ABG PARTIAL PRESSURE O2 69.3 mmHg (75.0-100.0); ABG STANDARD HCO3 26.9 MMOL/L. (22.0-26.0); ABG TOTAL CO2 29.8 MMOL/L (23.0-31.0); ABG pH (ARTERIAL) 7.397 UNITS (7.350-7.450)
[2024-01-16] VITALS (8 sets, daily range): BP systolic 118–147; BP diastolic 46–63; TEMP 97.3–97.9; O2SAT 89–96
[2024-01-16 06:43] LABS: BASO % 0.2 % (0.0-1.0); EOS % 0.1 % (0.0-3.0); HEMATOCRIT 38.1 % (42.0-52.0); HEMOGLOBIN 11.6 g/dl (13.5-17.5); LYMPH # 0.6 10^3/uL (1.5-5.0); LYMPH % 6.9 % (24.0-44.0); MEAN CORPUSCULAR HGB CONC 30.4 g/dl (32.0-36.5); MONO # 0.1 10^3/uL (0.0-0.8); MONO % 0.8 % (2.0-8.0); NEUTROPHILS # 7.8 10^3/uL (1.5-8.5); NEUTROPHILS % 89.4 % (36.0-66.0); PLATELET COUNT, AUTOMATED 314 10^3/uL (150-450); RED BLOOD COUNT 4.14 10^6/uL (4.30-6.10); WHITE BLOOD COUNT 8.7 10^3/uL (4.0-10.0)
[2024-01-16 07:11] LABS: CALCIUM LEVEL 9.6 MG/DL (8.3-10.6); CREATININE FOR GFR 1.33 MG/DL (0.70-1.30); GLOMERULAR FILTRATION RATE 55.7 (>42); MAGNESIUM LEVEL 2.2 MG/DL (1.8-2.4); POTASSIUM SERUM 5.1 MMOL/L (3.5-5.1)
[2024-01-16 09:13] LABS: CK-MB VALUE MASS 2.7 NG/ML (<3.6)
[2024-01-16 09:15] LABS: MB/CK RELATIVE INDEX 0.42 (< OR =4)
[2024-01-17] VITALS (7 sets, daily range): BP systolic 116–153; BP diastolic 49–65; TEMP 97.5–97.9; O2SAT 86–93
[2024-01-17] MEDS: ONDANSETRON 4MG 2ML VIAL IV ONE (06:12)
[2024-01-17 07:03] LABS: BASO % 0.3 % (0.0-1.0); EOS # 0.1 10^3/uL (0.0-0.5); HEMATOCRIT 33.8 % (42.0-52.0); HEMOGLOBIN 10.3 g/dl (13.5-17.5); LYMPH # 1.5 10^3/uL (1.5-5.0); LYMPH % 21.9 % (24.0-44.0); MEAN CORPUSCULAR HEMOGLOBIN 28.1 pg (27.0-33.0); MEAN CORPUSCULAR HGB CONC 30.5 g/dl (32.0-36.5); MEAN CORPUSCULAR VOLUME 92.1 fl (80.0-96.0); MONO # 0.6 10^3/uL (0.0-0.8); MONO % 8.2 % (2.0-8.0); NEUTROPHILS # 4.6 10^3/uL (1.5-8.5); NEUTROPHILS % 66.7 % (36.0-66.0); PLATELET COUNT, AUTOMATED 292 10^3/uL (150-450); RED BLOOD COUNT 3.67 10^6/uL (4.30-6.10); WHITE BLOOD COUNT 6.9 10^3/uL (4.0-10.0)
[2024-01-17 07:10] LABS: CREATININE FOR GFR 1.25 MG/DL (0.70-1.30); GLOMERULAR FILTRATION RATE 59.8 (>42); MAGNESIUM LEVEL 2.3 MG/DL (1.8-2.4); POTASSIUM SERUM 4.5 MMOL/L (3.5-5.1)
[2024-01-18] VITALS (15 sets, daily range): BP systolic 122–128; BP diastolic 51–58; TEMP 97.5–97.7; O2SAT 84–96
[2024-01-18 05:28] LABS: BASO % 0.5 % (0.0-1.0); EOS # 0.1 10^3/uL (0.0-0.5); EOS % 1.2 % (0.0-3.0); HEMATOCRIT 37.1 % (42.0-52.0); HEMOGLOBIN 11.1 g/dl (13.5-17.5); LYMPH # 1.9 10^3/uL (1.5-5.0); LYMPH % 25.2 % (24.0-44.0); MEAN CORPUSCULAR HGB CONC 29.9 g/dl (32.0-36.5); MEAN CORPUSCULAR VOLUME 93.5 fl (80.0-96.0); MONO # 0.6 10^3/uL (0.0-0.8); NEUTROPHILS # 4.8 10^3/uL (1.5-8.5); NEUTROPHILS % 63.6 % (36.0-66.0); PLATELET COUNT, AUTOMATED 272 10^3/uL (150-450); RED BLOOD COUNT 3.97 10^6/uL (4.30-6.10); WHITE BLOOD COUNT 7.5 10^3/uL (4.0-10.0)
[2024-01-18 05:52] LABS: CALCIUM LEVEL 9.2 MG/DL (8.3-10.6); CREATININE FOR GFR 1.42 MG/DL (0.70-1.30); GLOMERULAR FILTRATION RATE 51.6 (>42); MAGNESIUM LEVEL 2.2 MG/DL (1.8-2.4); POTASSIUM SERUM 5.2 MMOL/L (3.5-5.1)
[2024-01-19] VITALS (20 sets, daily range): BP systolic 123–149; BP diastolic 49–70; TEMP 97.3–98.2; O2SAT 84–95
[2024-01-19 06:25] LABS: BASO % 0.5 % (0.0-1.0); EOS # 0.2 10^3/uL (0.0-0.5); EOS % 1.8 % (0.0-3.0); HEMATOCRIT 38.3 % (42.0-52.0); HEMOGLOBIN 11.7 g/dl (13.5-17.5); LYMPH # 1.9 10^3/uL (1.5-5.0); LYMPH % 22.9 % (24.0-44.0); MEAN CORPUSCULAR HEMOGLOBIN 28.5 pg (27.0-33.0); MEAN CORPUSCULAR HGB CONC 30.5 g/dl (32.0-36.5); MEAN CORPUSCULAR VOLUME 93.2 fl (80.0-96.0); MONO # 0.6 10^3/uL (0.0-0.8); MONO % 7.2 % (2.0-8.0); NEUTROPHILS # 5.4 10^3/uL (1.5-8.5); PLATELET COUNT, AUTOMATED 302 10^3/uL (150-450); RED BLOOD COUNT 4.11 10^6/uL (4.30-6.10); WHITE BLOOD COUNT 8.2 10^3/uL (4.0-10.0)
[2024-01-19 07:12] LABS: C REACTIVE PROTEIN QUANTITATIV 2.3 MG/DL (<1.0)
[2024-01-19 07:13] LABS: CALCIUM LEVEL 9.4 MG/DL (8.3-10.6); CREATININE FOR GFR 1.34 MG/DL (0.70-1.30); GLOMERULAR FILTRATION RATE 55.2 (>42); MAGNESIUM LEVEL 2.2 MG/DL (1.8-2.4); POTASSIUM SERUM 4.9 MMOL/L (3.5-5.1)
[2024-01-19 07:23] LABS: PROCALCITONIN 0.07 ng/ml
[2024-01-19] MEDS: GLYCOPYRROLATE INJ 0.2 MG/ML 2 ML VIAL NEB SCH (20:00)
[2024-01-19] MEDS: FORMOTEROL FUMARATE 20 MCG/2 ML INHALATION SOLUTION (PERFOROMIST) INH SCH (20:00)
[2024-01-19] MEDS: methylPREDNISolone 40MG 1ML VIAL IV SCH (20:35)
[2024-01-19] MEDS: LIDOCAINE 2% 5ML JELLY UROJET TOP ONE (23:39)
[2024-01-20] VITALS (12 sets, daily range): BP systolic 135–149; BP diastolic 54–89; TEMP 97–97.7; O2SAT 87–95
[2024-01-20 05:03] LABS: BASO % 0.2 % (0.0-1.0); HEMATOCRIT 36.2 % (42.0-52.0); HEMOGLOBIN 11.6 g/dl (13.5-17.5); LYMPH # 0.4 10^3/uL (1.5-5.0); LYMPH % 4.5 % (24.0-44.0); MEAN CORPUSCULAR HEMOGLOBIN 28.5 pg (27.0-33.0); MEAN CORPUSCULAR VOLUME 88.9 fl (80.0-96.0); MONO # 0.1 10^3/uL (0.0-0.8); MONO % 0.5 % (2.0-8.0); NEUTROPHILS # 9.2 10^3/uL (1.5-8.5); NEUTROPHILS % 94.1 % (36.0-66.0); PLATELET COUNT, AUTOMATED 252 10^3/uL (150-450); RED BLOOD COUNT 4.07 10^6/uL (4.30-6.10); WHITE BLOOD COUNT 9.8 10^3/uL (4.0-10.0)
[2024-01-20 05:22] LABS: BLOOD UREA NITROGEN 24 MG/DL (9-23); CALCIUM LEVEL 9.6 MG/DL (8.3-10.6); CARBON DIOXIDE LEVEL 31 MMOL/L (20-31); CHLORIDE LEVEL 103 MMOL/L (98-107); CREATININE FOR GFR 1.15 MG/DL (0.70-1.30); GLOMERULAR FILTRATION RATE > 60.0 (>42); GLUCOSE, FASTING 159 MG/DL (74-106); MAGNESIUM LEVEL 2.1 MG/DL (1.8-2.4); POTASSIUM SERUM 5.2 MMOL/L (3.5-5.1); SODIUM LEVEL 137 MMOL/L (136-145)
[2024-01-21] VITALS (9 sets, daily range): BP systolic 124–149; BP diastolic 50–58; TEMP 96.6–97.3; O2SAT 86–94
[2024-01-21] MEDS: RAMELTEON 8 MG TAB (ROZEREM) PO PRN (02:59)
[2024-01-21 06:48] LABS: BLOOD UREA NITROGEN 28 MG/DL (9-23); CALCIUM LEVEL 9.2 MG/DL (8.3-10.6); CARBON DIOXIDE LEVEL 30 MMOL/L (20-31); CHLORIDE LEVEL 105 MMOL/L (98-107); CREATININE FOR GFR 1.15 MG/DL (0.70-1.30); GLOMERULAR FILTRATION RATE > 60.0 (>42); GLUCOSE, FASTING 185 MG/DL (74-106); POTASSIUM SERUM 4.7 MMOL/L (3.5-5.1); SODIUM LEVEL 138 MMOL/L (136-145)
[2024-01-21] MEDS: MOM 30ML SUSPENSION UDC PO ONE (15:08)
[2024-01-21] MEDS: ALBUTEROL SULFATE 2.5MG/0.5ML INH NEB SOLN NEB PRN (20:27)
[2024-01-21] MEDS: SENNA 8.6 MG TAB (SENOKOT) PO SCH (20:57)
[2024-01-22] VITALS (7 sets, daily range): BP systolic 126–142; BP diastolic 51–58; TEMP 97.2–97.7; O2SAT 84–98
[2024-01-22 06:56] LABS: BLOOD UREA NITROGEN 32 MG/DL (9-23); CALCIUM LEVEL 9.3 MG/DL (8.3-10.6); CARBON DIOXIDE LEVEL 33 MMOL/L (20-31); CHLORIDE LEVEL 102 MMOL/L (98-107); CREATININE FOR GFR 1.11 MG/DL (0.70-1.30); GLOMERULAR FILTRATION RATE > 60.0 (>42); GLUCOSE, FASTING 204 MG/DL (74-106); POTASSIUM SERUM 5.1 MMOL/L (3.5-5.1); SODIUM LEVEL 139 MMOL/L (136-145)
[2024-01-23 04:00] VITALS: BP 150/60; TEMP 97.5; O2SAT 98
[2024-01-23 05:07] LABS: BASO % 0.1 % (0.0-1.0); HEMATOCRIT 35.7 % (42.0-52.0); HEMOGLOBIN 11.1 g/dl (13.5-17.5); LYMPH # 0.5 10^3/uL (1.5-5.0); LYMPH % 6.1 % (24.0-44.0); MEAN CORPUSCULAR HEMOGLOBIN 28.1 pg (27.0-33.0); MEAN CORPUSCULAR HGB CONC 31.1 g/dl (32.0-36.5); MEAN CORPUSCULAR VOLUME 90.4 fl (80.0-96.0); MONO # 0.3 10^3/uL (0.0-0.8); MONO % 3.3 % (2.0-8.0); NEUTROPHILS # 7.5 10^3/uL (1.5-8.5); NEUTROPHILS % 89.2 % (36.0-66.0); PLATELET COUNT, AUTOMATED 256 10^3/uL (150-450); RED BLOOD COUNT 3.95 10^6/uL (4.30-6.10); WHITE BLOOD COUNT 8.4 10^3/uL (4.0-10.0)
[2024-01-23 05:31] LABS: BLOOD UREA NITROGEN 28 MG/DL (9-23); CALCIUM LEVEL 9.5 MG/DL (8.3-10.6); CARBON DIOXIDE LEVEL 31 MMOL/L (20-31); CHLORIDE LEVEL 103 MMOL/L (98-107); CREATININE FOR GFR 1.11 MG/DL (0.70-1.30); GLOMERULAR FILTRATION RATE > 60.0 (>42); GLUCOSE, FASTING 170 MG/DL (74-106); SODIUM LEVEL 137 MMOL/L (136-145)
[2024-01-23 05:43] LABS: PROCALCITONIN 0.05 ng/ml
[2024-01-23 07:27] VITALS: O2SAT 93
[2024-01-23 12:00] VITALS: BP 148/59; TEMP 97.3; O2SAT 90
[2024-01-23] MEDS: SODIUM CHLORIDE 0.9% 3ML NEB SOLUTION FOR INHALATION INH SCH (19:51)
[2024-01-23 20:00] VITALS: BP 157/58; TEMP 97.5; O2SAT 91
[2024-01-23 23:00] VITALS: O2SAT 97
[2024-01-24] VITALS (10 sets, daily range): BP systolic 136–172; BP diastolic 57–85; TEMP 97.3–97.5; O2SAT 78–93
[2024-01-24] MEDS: FUROSEMIDE 40MG/4ML VIAL IV ONE (05:05)
[2024-01-24] MEDS: methylPREDNISolone 40MG 1ML VIAL IV SCH (08:35)
[2024-01-24] MEDS: METHADONE 10MG TAB PO SCH (20:40)
[2024-01-25 03:10] VITALS: BP 139/61; TEMP 97.5; O2SAT 90
[2024-01-25 06:45] LABS: BASO % 0.3 % (0.0-1.0); EOS # 0.1 10^3/uL (0.0-0.5); EOS % 0.6 % (0.0-3.0); HEMATOCRIT 37.7 % (42.0-52.0); HEMOGLOBIN 11.6 g/dl (13.5-17.5); LYMPH # 1.5 10^3/uL (1.5-5.0); LYMPH % 13.5 % (24.0-44.0); MEAN CORPUSCULAR HEMOGLOBIN 28.2 pg (27.0-33.0); MEAN CORPUSCULAR HGB CONC 30.8 g/dl (32.0-36.5); MEAN CORPUSCULAR VOLUME 91.7 fl (80.0-96.0); MONO # 0.8 10^3/uL (0.0-0.8); MONO % 7.3 % (2.0-8.0); NEUTROPHILS # 8.5 10^3/uL (1.5-8.5); NEUTROPHILS % 75.8 % (36.0-66.0); PLATELET COUNT, AUTOMATED 240 10^3/uL (150-450); RED BLOOD COUNT 4.11 10^6/uL (4.30-6.10); WHITE BLOOD COUNT 11.2 10^3/uL (4.0-10.0)
[2024-01-25 07:17] LABS: CALCIUM LEVEL 9.4 MG/DL (8.3-10.6); CREATININE FOR GFR 1.37 MG/DL (0.70-1.30); GLOMERULAR FILTRATION RATE 53.8 (>42); POTASSIUM SERUM 4.7 MMOL/L (3.5-5.1)
[2024-01-25] MEDS: ONDANSETRON 4MG ORAL DISINTEGRATING TAB PO PRN (08:12)
[2024-01-25 08:47] VITALS: O2SAT 85
[2024-01-25 08:50] VITALS: O2SAT 91
[2024-01-25 10:08] VITALS: O2SAT 91
[2024-01-25 12:00] VITALS: BP 138/61; TEMP 97.2; O2SAT 89
[2024-01-25 20:22] VITALS: BP 132/68; TEMP 97.3; O2SAT 91
[2024-01-26 04:00] VITALS: BP 140/68; TEMP 97.5; O2SAT 93
[2024-01-26 06:46] LABS: HEMATOCRIT 41.4 % (42.0-52.0); HEMOGLOBIN 12.7 g/dl (13.5-17.5); MEAN CORPUSCULAR HEMOGLOBIN 28.7 pg (27.0-33.0); MEAN CORPUSCULAR HGB CONC 30.7 g/dl (32.0-36.5); MEAN CORPUSCULAR VOLUME 93.5 fl (80.0-96.0); PLATELET COUNT, AUTOMATED 259 10^3/uL (150-450); RED BLOOD COUNT 4.43 10^6/uL (4.30-6.10); WHITE BLOOD COUNT 12.7 10^3/uL (4.0-10.0)
[2024-01-26 07:15] LABS: ALBUMIN 2.8 G/DL (3.2-5.2); ALKALINE PHOSPHATASE 98 U/L (40-129); ALT/SGPT 28 U/L (7.0-40); AST/SGOT 22 U/L (<34); BILIRUBIN,TOTAL 0.3 MG/DL (0.3-1.2); BLOOD UREA NITROGEN 28 MG/DL (9-23); CALCIUM LEVEL 9.6 MG/DL (8.3-10.6); CARBON DIOXIDE LEVEL 33 MMOL/L (20-31); CHLORIDE LEVEL 100 MMOL/L (98-107); CREATININE FOR GFR 1.18 MG/DL (0.70-1.30); GLOMERULAR FILTRATION RATE > 60.0 (>42); GLUCOSE, FASTING 56 MG/DL (74-106); POTASSIUM SERUM 5.2 MMOL/L (3.5-5.1); SODIUM LEVEL 137 MMOL/L (136-145); TOTAL PROTEIN 6.9 G/DL (5.7-8.2)
[2024-01-26 12:00] VITALS: BP 127/67; TEMP 97.2; O2SAT 92
[2024-01-26 20:00] VITALS: BP 146/68; TEMP 97.2; O2SAT 91
[2024-01-26 22:28] VITALS: O2SAT 95
[2024-01-27 03:34] VITALS: BP 160/77; TEMP 97.3; O2SAT 95
[2024-01-27 05:51] LABS: HEMATOCRIT 39.6 % (42.0-52.0); HEMOGLOBIN 12.3 g/dl (13.5-17.5); MEAN CORPUSCULAR HEMOGLOBIN 28.9 pg (27.0-33.0); MEAN CORPUSCULAR HGB CONC 31.1 g/dl (32.0-36.5); PLATELET COUNT, AUTOMATED 239 10^3/uL (150-450); RED BLOOD COUNT 4.26 10^6/uL (4.30-6.10); WHITE BLOOD COUNT 11.9 10^3/uL (4.0-10.0)
[2024-01-27 06:21] LABS: ALBUMIN 2.7 G/DL (3.2-5.2); ALKALINE PHOSPHATASE 94 U/L (40-129); ALT/SGPT 24 U/L (7.0-40); AST/SGOT 12 U/L (<34); BILIRUBIN,TOTAL 0.3 MG/DL (0.3-1.2); BLOOD UREA NITROGEN 26 MG/DL (9-23); CALCIUM LEVEL 9.6 MG/DL (8.3-10.6); CARBON DIOXIDE LEVEL 35 MMOL/L (20-31); CHLORIDE LEVEL 101 MMOL/L (98-107); CREATININE FOR GFR 1.18 MG/DL (0.70-1.30); GLOMERULAR FILTRATION RATE > 60.0 (>42); GLUCOSE, FASTING 67 MG/DL (74-106); POTASSIUM SERUM 4.6 MMOL/L (3.5-5.1); SODIUM LEVEL 139 MMOL/L (136-145); TOTAL PROTEIN 6.5 G/DL (5.7-8.2)
[2024-01-27 12:00] VITALS: BP 147/73; TEMP 97.3; O2SAT 91
[2024-01-27 20:41] VITALS: BP 147/80; TEMP 97.3; O2SAT 93
[2024-01-28 04:00] VITALS: BP 140/65; TEMP 97.3; O2SAT 93
[2024-01-28 05:15] LABS: HEMATOCRIT 39.3 % (42.0-52.0); HEMOGLOBIN 12.5 g/dl (13.5-17.5); MEAN CORPUSCULAR HEMOGLOBIN 29.1 pg (27.0-33.0); MEAN CORPUSCULAR HGB CONC 31.8 g/dl (32.0-36.5); MEAN CORPUSCULAR VOLUME 91.6 fl (80.0-96.0); PLATELET COUNT, AUTOMATED 258 10^3/uL (150-450); RED BLOOD COUNT 4.29 10^6/uL (4.30-6.10); WHITE BLOOD COUNT 12.5 10^3/uL (4.0-10.0)
[2024-01-28 05:54] LABS: ALBUMIN 2.7 G/DL (3.2-5.2); ALKALINE PHOSPHATASE 94 U/L (40-129); ALT/SGPT 22 U/L (7.0-40); AST/SGOT 14 U/L (<34); BILIRUBIN,TOTAL 0.5 MG/DL (0.3-1.2); BLOOD UREA NITROGEN 25 MG/DL (9-23); CALCIUM LEVEL 9.6 MG/DL (8.3-10.6); CARBON DIOXIDE LEVEL 36 MMOL/L (20-31); CHLORIDE LEVEL 96 MMOL/L (98-107); CREATININE FOR GFR 1.07 MG/DL (0.70-1.30); GLOMERULAR FILTRATION RATE > 60.0 (>42); GLUCOSE, FASTING 58 MG/DL (74-106); POTASSIUM SERUM 4.4 MMOL/L (3.5-5.1); SODIUM LEVEL 136 MMOL/L (136-145); TOTAL PROTEIN 6.7 G/DL (5.7-8.2)
[2024-01-28 12:00] VITALS: BP 152/69; TEMP 97.3; O2SAT 92
[2024-01-28 20:00] VITALS: BP 147/67; TEMP 97.3; O2SAT 92
[2024-01-29] VITALS (9 sets, daily range): BP systolic 132–175; BP diastolic 55–88; TEMP 97–97.2; O2SAT 85–95
[2024-01-29 05:18] LABS: HEMATOCRIT 41.9 % (42.0-52.0); MEAN CORPUSCULAR HEMOGLOBIN 28.2 pg (27.0-33.0); MEAN CORPUSCULAR VOLUME 90.9 fl (80.0-96.0); PLATELET COUNT, AUTOMATED 227 10^3/uL (150-450); RED BLOOD COUNT 4.61 10^6/uL (4.30-6.10); WHITE BLOOD COUNT 10.9 10^3/uL (4.0-10.0)
[2024-01-29 05:48] LABS: ALBUMIN 2.6 G/DL (3.2-5.2); ALKALINE PHOSPHATASE 99 U/L (40-129); ALT/SGPT 25 U/L (7.0-40); AST/SGOT 12 U/L (<34); BILIRUBIN,TOTAL 0.3 MG/DL (0.3-1.2); BLOOD UREA NITROGEN 25 MG/DL (9-23); CALCIUM LEVEL 9.7 MG/DL (8.3-10.6); CARBON DIOXIDE LEVEL 36 MMOL/L (20-31); CHLORIDE LEVEL 97 MMOL/L (98-107); GLOMERULAR FILTRATION RATE > 60.0 (>42); GLUCOSE, FASTING 82 MG/DL (74-106); POTASSIUM SERUM 4.7 MMOL/L (3.5-5.1); SODIUM LEVEL 137 MMOL/L (136-145); TOTAL PROTEIN 6.8 G/DL (5.7-8.2)
[2024-01-29] MEDS: ACETYLCYSTEINE 20% 4 ML VIAL (200MG/ML) INH SCH (21:28)
[2024-01-29] MEDS ORDERED: POTASSIUM CHLORIDE 10MEQ SR TABLET PO ONE (22:50)
[2024-01-30 04:00] VITALS: BP 115/50; TEMP 97; O2SAT 92
[2024-01-30 04:30] VITALS: BP 140/65; O2SAT 92
[2024-01-30 06:18] LABS: HEMATOCRIT 38.6 % (42.0-52.0); MEAN CORPUSCULAR HEMOGLOBIN 28.6 pg (27.0-33.0); MEAN CORPUSCULAR HGB CONC 31.1 g/dl (32.0-36.5); MEAN CORPUSCULAR VOLUME 92.1 fl (80.0-96.0); PLATELET COUNT, AUTOMATED 209 10^3/uL (150-450); RED BLOOD COUNT 4.19 10^6/uL (4.30-6.10); WHITE BLOOD COUNT 11.5 10^3/uL (4.0-10.0)
[2024-01-30 06:59] LABS: ALBUMIN 2.4 G/DL (3.2-5.2); ALKALINE PHOSPHATASE 89 U/L (40-129); ALT/SGPT 27 U/L (7.0-40); AST/SGOT 13 U/L (<34); BILIRUBIN,TOTAL 0.3 MG/DL (0.3-1.2); BLOOD UREA NITROGEN 26 MG/DL (9-23); CALCIUM LEVEL 9.6 MG/DL (8.3-10.6); CARBON DIOXIDE LEVEL 33 MMOL/L (20-31); CHLORIDE LEVEL 100 MMOL/L (98-107); CREATININE FOR GFR 1.12 MG/DL (0.70-1.30); GLOMERULAR FILTRATION RATE > 60.0 (>42); GLUCOSE, FASTING 80 MG/DL (74-106); POTASSIUM SERUM 4.6 MMOL/L (3.5-5.1); SODIUM LEVEL 139 MMOL/L (136-145); TOTAL PROTEIN 6.3 G/DL (5.7-8.2)
[2024-01-30] MEDS ORDERED: cefTRIAXone SOD 1 GM in DEXTROSE 5% (D5W) ADV/MINI-BAG 50 ML IV SCH (07:35)
[2024-01-30] MEDS ORDERED: NS 1,000 ML IV ONE (08:00)
[2024-01-30 08:11] LABS: PROCALCITONIN 0.06 ng/ml
[2024-01-30] MEDS: CEFEPIME HCL 2 GM in DEXTROSE 5% (D5W) ADV/MINI-BAG 50 ML IV SCH (08:28)
[2024-01-30] MEDS ORDERED: ACETYLCYSTEINE 20% 30ML VIAL INH SCH (09:00)
[2024-01-30] MEDS: NS 500 ML IV ONE (10:03)
[2024-01-30] MEDS: DOXYCYCLINE HYCLATE 100 MG in DEXTROSE 5% (D5W) MINI-BAG PLU 100 ML IV SCH (10:03)
[2024-01-30 12:00] VITALS: BP_SYST 105; BP_SYST 141; BP_DIAS 57; BP_DIAS 70; TEMP 97.5; TEMP 97.7; O2SAT 85; O2SAT 92
[2024-01-30 12:54] VITALS: O2SAT 93
[2024-01-30 18:16] VITALS: O2SAT 92
[2024-01-30] MEDS: DOXYCYCLINE HYCLATE 100MG TABLET PO SCH (20:11)
[2024-01-30 21:00] VITALS: BP 137/50; TEMP 97.2; O2SAT 92
[2024-01-31 04:00] VITALS: BP 139/63; TEMP 97.5; O2SAT 93
[2024-01-31 06:34] LABS: HEMATOCRIT 39.3 % (42.0-52.0); HEMOGLOBIN 12.3 g/dl (13.5-17.5); MEAN CORPUSCULAR HEMOGLOBIN 28.6 pg (27.0-33.0); MEAN CORPUSCULAR HGB CONC 31.3 g/dl (32.0-36.5); MEAN CORPUSCULAR VOLUME 91.4 fl (80.0-96.0); PLATELET COUNT, AUTOMATED 202 10^3/uL (150-450); WHITE BLOOD COUNT 9.6 10^3/uL (4.0-10.0)
[2024-01-31 07:04] LABS: ALBUMIN 2.4 G/DL (3.2-5.2); ALKALINE PHOSPHATASE 93 U/L (40-129); ALT/SGPT 27 U/L (7.0-40); AST/SGOT 13 U/L (<34); BILIRUBIN,TOTAL 0.4 MG/DL (0.3-1.2); BLOOD UREA NITROGEN 20 MG/DL (9-23); CALCIUM LEVEL 9.4 MG/DL (8.3-10.6); CARBON DIOXIDE LEVEL 32 MMOL/L (20-31); CHLORIDE LEVEL 99 MMOL/L (98-107); CREATININE FOR GFR 1.09 MG/DL (0.70-1.30); GLOMERULAR FILTRATION RATE > 60.0 (>42); GLUCOSE, FASTING 75 MG/DL (74-106); POTASSIUM SERUM 4.5 MMOL/L (3.5-5.1); SODIUM LEVEL 137 MMOL/L (136-145); TOTAL PROTEIN 6.6 G/DL (5.7-8.2)
[2024-01-31 12:00] VITALS: BP 143/67; TEMP 97.7; O2SAT 92
[2024-01-31 20:00] VITALS: BP 131/86; TEMP 97; O2SAT 91
[2024-02-01 04:00] VITALS: BP 131/66; TEMP 97.2; O2SAT 92
[2024-02-01 05:23] LABS: HEMATOCRIT 37.2 % (42.0-52.0); HEMOGLOBIN 11.9 g/dl (13.5-17.5); MEAN CORPUSCULAR HEMOGLOBIN 28.7 pg (27.0-33.0); MEAN CORPUSCULAR VOLUME 89.9 fl (80.0-96.0); PLATELET COUNT, AUTOMATED 184 10^3/uL (150-450); RED BLOOD COUNT 4.14 10^6/uL (4.30-6.10); WHITE BLOOD COUNT 9.5 10^3/uL (4.0-10.0)
[2024-02-01 05:47] LABS: ALBUMIN 2.3 G/DL (3.2-5.2); ALKALINE PHOSPHATASE 79 U/L (40-129); ALT/SGPT 22 U/L (7.0-40); AST/SGOT 12 U/L (<34); BILIRUBIN,TOTAL 0.5 MG/DL (0.3-1.2); BLOOD UREA NITROGEN 20 MG/DL (9-23); CALCIUM LEVEL 9.1 MG/DL (8.3-10.6); CARBON DIOXIDE LEVEL 31 MMOL/L (20-31); CHLORIDE LEVEL 99 MMOL/L (98-107); CREATININE FOR GFR 1.12 MG/DL (0.70-1.30); GLOMERULAR FILTRATION RATE > 60.0 (>42); GLUCOSE, FASTING 121 MG/DL (74-106); POTASSIUM SERUM 4.3 MMOL/L (3.5-5.1); SODIUM LEVEL 137 MMOL/L (136-145)
[2024-02-01] MEDS ORDERED: LevoFLOXacin 750 MG TABLET PO SCH (06:00)
[2024-02-01] MEDS: SENOKOT S TAB PO PRN (06:47)
[2024-02-01] MEDS: ENTRESTO 24-26MG TABLET (SACUBITRIL/VALSARTAN) PO SCH (09:00)
[2024-02-01 12:00] VITALS: BP 105/85; TEMP 97.5; O2SAT 91
[2024-02-01 20:00] VITALS: BP 108/67; TEMP 97.2; O2SAT 91
[2024-02-02 03:46] VITALS: BP 112/52; TEMP 97.3; O2SAT 94
[2024-02-02 09:20] VITALS: BP 95/44
[2024-02-02 18:16] VITALS: BP 128/66
[2024-02-02 20:49] VITALS: BP 124/69; TEMP 97; O2SAT 92
[2024-02-02 21:48] VITALS: BP 127/67
[2024-02-03 03:57] VITALS: BP 112/79; TEMP 97.3; O2SAT 93
[2024-02-03 20:09] VITALS: BP 117/48; TEMP 97.2; O2SAT 97
[2024-02-04] VITALS (19 sets, daily range): BP systolic 90–133; BP diastolic 46–71; TEMP 97.3–97.9; O2SAT 89–95
[2024-02-05 00:45] VITALS: O2SAT 93
[2024-02-05 03:40] VITALS: BP 123/62; TEMP 97.7; O2SAT 93
[2024-02-05 20:45] VITALS: BP 126/54; TEMP 97.5; O2SAT 94
[2024-02-05 22:51] VITALS: O2SAT 95
[2024-02-06 04:35] VITALS: BP 140/67; TEMP 97.3; O2SAT 95
[2024-02-07 04:34] VITALS: BP 134/55; TEMP 97.7; O2SAT 94
[2024-02-08] VITALS (17 sets, daily range): BP systolic 131; BP diastolic 58; TEMP 97.5; O2SAT 90–95
[2024-02-09 04:35] VITALS: BP 127/57; TEMP 97.3; O2SAT 91
[2024-02-09] MEDS ORDERED: METH-1177 PO (12:55)
[2024-02-09] MEDS ORDERED: SENN-52 PO (12:55)
[2024-02-09] MEDS ORDERED: ASPI81TAEC PO (12:55)
[2024-02-09] MEDS ORDERED: SENO8.6T5 PO (12:55)
== END 2024-02-09 17:55 | disposition home or self-care (01) | DRG 193 ==
LOC: EDBD 05:34 → M ED 05:34 → M ED INP 11:29 → M ICU 12:48 → M MSPAV 01-12 18:26
PROVIDERS: ADMIT Internal Medicine Pulmonary Disease; ATTEND Internal Medicine
PROC: B246ZZZ Ultrasonography of Right and Left Heart (ICD-10-PCS; principal; 2024-01-11)
DX: J15.7 Pneumonia due to Mycoplasma pneumoniae (principal); J96.01 Acute respiratory failure with hypoxia; J96.02 Acute respiratory failure with hypercapnia; N17.9 Acute kidney failure, unspecified; I50.42 Chronic combined systolic (congestive) and diastolic (congestive) heart failure; I24.89 Other forms of acute ischemic heart disease; E87.4 Mixed disorder of acid-base balance; J44.1 Chronic obstructive pulmonary disease with (acute) exacerbation; J44.0 Chronic obstructive pulmonary disease with (acute) lower respiratory infection; B34.8 Other viral infections of unspecified site; F41.9 Anxiety disorder, unspecified; E11.42 Type 2 diabetes mellitus with diabetic polyneuropathy; M19.90 Unspecified osteoarthritis, unspecified site; L40.9 Psoriasis, unspecified; F32.A Depression, unspecified; D50.9 Iron deficiency anemia, unspecified; D63.8 Anemia in other chronic diseases classified elsewhere; M75.101 Unspecified rotator cuff tear or rupture of right shoulder, not specified as traumatic; E78.5 Hyperlipidemia, unspecified; K59.00 Constipation, unspecified; I25.10 Atherosclerotic heart disease of native coronary artery without angina pectoris; T38.3X5A Adverse effect of insulin and oral hypoglycemic [antidiabetic] drugs, initial encounter; E87.5 Hyperkalemia; F03.90 Unspecified dementia, unspecified severity, without behavioral disturbance, psychotic disturbance, mood disturbance, and anxiety; M54.9 Dorsalgia, unspecified; N40.0 Benign prostatic hyperplasia without lower urinary tract symptoms; I44.7 Left bundle-branch block, unspecified; I11.0 Hypertensive heart disease with heart failure; G89.29 Other chronic pain; Z79.84 Long term (current) use of oral hypoglycemic drugs; Z88.5 Allergy status to narcotic agent; Z88.8 Allergy status to other drugs, medicaments and biological substances; Z20.822 Contact with and (suspected) exposure to COVID-19; Z87.891 Personal history of nicotine dependence; Z79.891 Long term (current) use of opiate analgesic; E11.65 Type 2 diabetes mellitus with hyperglycemia; I16.0 Hypertensive urgency; Z99.81 Dependence on supplemental oxygen

== ENCOUNTER 2024-02-13 10:47 | Emergency (ER) | payer MEDICARE, MEDICAID ==
[~2024-02-13 10:47] MED LIST changes: +ASPI81TAEC PO; +BUPR150T12 PO; +SENN-52 PO; +SENO8.6T5 PO
[2024-02-13 11:24] LABS: VENOUS BASE EXCESS 3.9 (-2.0-2.0); VENOUS HCO3 28.9 MMOL/L (23.0-27.0); VENOUS O2 SATURATION 70.6 % (60.0-80.0); VENOUS PARTIAL PRESSURE CO2 44.9 mmHg (38.0-50.0); VENOUS PARTIAL PRESSURE O2 35.4 mmHg (30.0-50.0); VENOUS PH 7.427 UNITS (7.330-7.430); VENOUS STANDARD HCO3 27.3 MMOL/L; VENOUS TOTAL CO2 30.3 MMOL/L (24.0-28.0)
[2024-02-13 11:33] LABS: BASO % 0.4 % (0.0-1.0); EOS # 0.1 10^3/uL (0.0-0.5); EOS % 1.6 % (0.0-3.0); HEMATOCRIT 37.9 % (42.0-52.0); HEMOGLOBIN 12.3 g/dl (13.5-17.5); LYMPH # 1.1 10^3/uL (1.5-5.0); LYMPH % 22.5 % (24.0-44.0); MEAN CORPUSCULAR HEMOGLOBIN 29.1 pg (27.0-33.0); MEAN CORPUSCULAR HGB CONC 32.5 g/dl (32.0-36.5); MEAN CORPUSCULAR VOLUME 89.6 fl (80.0-96.0); MONO # 0.5 10^3/uL (0.0-0.8); MONO % 9.7 % (2.0-8.0); NEUTROPHILS # 3.3 10^3/uL (1.5-8.5); NEUTROPHILS % 65.2 % (36.0-66.0); PLATELET COUNT, AUTOMATED 224 10^3/uL (150-450); RED BLOOD COUNT 4.23 10^6/uL (4.30-6.10); WHITE BLOOD COUNT 5.1 10^3/uL (4.0-10.0)
[2024-02-13 11:58] LABS: ALBUMIN 2.8 G/DL (3.2-5.2); BILIRUBIN,DIRECT 0.2 MG/DL (<0.4); BILIRUBIN,TOTAL 0.5 MG/DL (0.3-1.2); CALCIUM LEVEL 9.2 MG/DL (8.3-10.6); CREATININE FOR GFR 1.34 MG/DL (0.70-1.30); GLOMERULAR FILTRATION RATE 55.2 (>42); POTASSIUM SERUM 4.4 MMOL/L (3.5-5.1); TOTAL PROTEIN 6.8 G/DL (5.7-8.2)
[2024-02-13 11:59] LABS: CK-MB VALUE MASS 1.2 NG/ML (<3.6); MB/CK RELATIVE INDEX 1.48 (< OR =4)
[2024-02-13 12:02] LABS: THYROXINE (T4) 7.9 UG/DL (4.5-10.9)
[2024-02-13 12:03] LABS: THYROID STIMULATING HORMONE 0.457 uIU/ML (0.55-4.78)
[2024-02-13] MEDS ORDERED: ISOVUE-370 76% 100ML VIAL As Ordered ONE (12:26)
[2024-02-13 13:14] LABS: LIPASE 23 U/L (12-53)
[2024-02-13 13:16] LABS: CK-MB VALUE MASS < 1.0 NG/ML (<3.6)
[2024-02-13 13:19] LABS: CPK CREATINE PHOSPHOKINASE 81 U/L (46-171); MB/CK RELATIVE INDEX 1.23 (< OR =4)
[2024-02-13 14:12] LABS: PROCALCITONIN 0.09 ng/ml
[2024-02-13 16:20] VITALS: O2SAT 89
[2024-02-13] MEDS: methylPREDNISolone 40MG 1ML VIAL IV ONE (16:30)
[2024-02-13] MEDS ORDERED: PRED10TA2 PO (18:58)
[2024-02-13 19:48] VITALS: BP 157/87; TEMP 97.7; O2SAT 92
== END 2024-02-13 19:52 | disposition home or self-care (01) ==
LOC: M ED 10:47 → EDBD 10:47 → M ED 19:52
DX: R06.02 Shortness of breath (principal); B34.1 Enterovirus infection, unspecified; I50.22 Chronic systolic (congestive) heart failure; E11.9 Type 2 diabetes mellitus without complications; I44.7 Left bundle-branch block, unspecified; I11.0 Hypertensive heart disease with heart failure; N40.0 Benign prostatic hyperplasia without lower urinary tract symptoms; D64.9 Anemia, unspecified; F32.A Depression, unspecified; Z88.8 Allergy status to other drugs, medicaments and biological substances; Z79.1 Long term (current) use of non-steroidal anti-inflammatories (NSAID); Z79.84 Long term (current) use of oral hypoglycemic drugs; Z79.52 Long term (current) use of systemic steroids; Z79.899 Other long term (current) drug therapy
CPT/HCPCS: 70450; 71045; 71275; 74177; 80048; 80076; 81001; 82550; 82553; 82803; 83605; 83690; 83880; 84145; 84436; 84443; 84484; 85025; 87040; 87486; 87581; 87633; 87798; 93005; 93041; 94760; 96374; 99285; J2919; Q9967

== ENCOUNTER 2024-05-04 07:38 | Emergency (ER) | payer OTHER, MEDICAID ==
[~2024-05-04 07:38] MED LIST changes: +PRED10TA2 PO
[2024-05-04 09:48] LABS: BASO % 0.5 % (0.0-1.0); EOS # 0.1 10^3/uL (0.0-0.5); HEMATOCRIT 36.7 % (42.0-52.0); HEMOGLOBIN 11.5 g/dl (13.5-17.5); LYMPH # 1.1 10^3/uL (1.5-5.0); LYMPH % 19.2 % (24.0-44.0); MEAN CORPUSCULAR HEMOGLOBIN 29.6 pg (27.0-33.0); MEAN CORPUSCULAR HGB CONC 31.3 g/dl (32.0-36.5); MEAN CORPUSCULAR VOLUME 94.3 fl (80.0-96.0); MONO # 0.4 10^3/uL (0.0-0.8); MONO % 6.4 % (2.0-8.0); NEUTROPHILS # 4.2 10^3/uL (1.5-8.5); NEUTROPHILS % 72.6 % (36.0-66.0); PLATELET COUNT, AUTOMATED 228 10^3/uL (150-450); RED BLOOD COUNT 3.89 10^6/uL (4.30-6.10); WHITE BLOOD COUNT 5.8 10^3/uL (4.0-10.0)
[2024-05-04 10:13] LABS: ETHYL ALCOHOL (ETHANOL) 0.009 % (0.000-0.010)
[2024-05-04 10:15] LABS: SALICYLATE LEVEL < 3.0 MG/DL (<30)
[2024-05-04 10:17] LABS: ALBUMIN 3.2 G/DL (3.2-5.2); ALKALINE PHOSPHATASE 90 U/L (40-129); ALT/SGPT 9 U/L (7.0-40); AST/SGOT 15 U/L (<34); BILIRUBIN,DIRECT < 0.1 MG/DL (<0.4); BILIRUBIN,TOTAL 0.4 MG/DL (0.3-1.2); BLOOD UREA NITROGEN 24 MG/DL (9-23); CALCIUM LEVEL 9.3 MG/DL (8.3-10.6); CARBON DIOXIDE LEVEL 29 MMOL/L (20-31); CHLORIDE LEVEL 107 MMOL/L (98-107); CREATININE FOR GFR 1.05 MG/DL (0.70-1.30); GLOMERULAR FILTRATION RATE > 60.0 (>42); GLUCOSE, FASTING 102 MG/DL (74-106); POTASSIUM SERUM 4.9 MMOL/L (3.5-5.1); SODIUM LEVEL 142 MMOL/L (136-145); TOTAL PROTEIN 6.8 G/DL (5.7-8.2)
[2024-05-04 10:18] LABS: THYROID STIMULATING HORMONE 0.558 uIU/ML (0.55-4.78)
[2024-05-04 10:40] LABS: KETONE, URINE AUTO RFX NEGATIVE (NEGATIVE); LEUKOCYTE ESTERASE UR AUTO RFX NEGATIVE (NEGATIVE); MUCUS, URINE RFX SMALL (NEGATIVE); NITRITE, URINE AUTO RFX NEGATIVE (NEGATIVE); RBC, URINE AUTO RFX 1 /HPF (0-3); SQUAM EPITHELIAL CELL UR AURFX 0 /HPF (0-6); WBC, URINE AUTO RFX 0 /HPF (0-3)
[2024-05-04] MEDS ORDERED: CLON-412 PO (10:50)
[2024-05-04] MEDS ORDERED: METH-1177 PO (10:50)
[2024-05-04] MEDS ORDERED: BUPR150T12 PO (10:56)
[2024-05-04] MEDS ORDERED: HOME MED LIST COMPLETE! XX SCH (11:00)
[2024-05-04 11:04] LABS: AMPHETAMINES LEVEL URINE NEGATIVE (NEGATIVE); BARBITURATES URINE NEGATIVE (NEGATIVE); BENZODIAZEPINES URINE NEGATIVE (NEGATIVE); CANNABINOIDS URINE NEGATIVE (NEGATIVE); COCAINE METABOLITE URINE NEGATIVE (NEGATIVE); OPIATES URINE NEGATIVE (NEGATIVE); PHENCYCLIDINE URINE NEGATIVE (NEGATIVE)
[2024-05-04 11:06] LABS: METHADONE URINE POSITIVE (NEGATIVE)
[2024-05-04 14:15] VITALS: BP 172/75; TEMP 97.4; O2SAT 97
== END 2024-05-04 14:29 | disposition home or self-care (01) ==
LOC: M ED 07:38 → EDBD 07:38 → M ED 14:29
DX: G31.84 Mild cognitive impairment of uncertain or unknown etiology (principal); I44.7 Left bundle-branch block, unspecified; I50.22 Chronic systolic (congestive) heart failure; E11.9 Type 2 diabetes mellitus without complications; I11.0 Hypertensive heart disease with heart failure; N40.0 Benign prostatic hyperplasia without lower urinary tract symptoms; F32.A Depression, unspecified; Z88.5 Allergy status to narcotic agent; Z88.8 Allergy status to other drugs, medicaments and biological substances; Z79.1 Long term (current) use of non-steroidal anti-inflammatories (NSAID); Z79.84 Long term (current) use of oral hypoglycemic drugs; Z79.899 Other long term (current) drug therapy

== ENCOUNTER 2024-05-25 13:23 | Observation (INO) | payer OTHER, MEDICAID ==
[~2024-05-25] VITALS: Ht 172.7 cm; Wt 90.1 kg
[~2024-05-25 13:23] MED LIST changes: +CLON-412 PO
[2024-05-25 14:49] LABS: BASO % 0.5 % (0.0-1.0); EOS # 0.1 10^3/uL (0.0-0.5); EOS % 0.9 % (0.0-3.0); HEMATOCRIT 34.5 % (42.0-52.0); HEMOGLOBIN 10.6 g/dl (13.5-17.5); LYMPH # 1.3 10^3/uL (1.5-5.0); LYMPH % 20.6 % (24.0-44.0); MEAN CORPUSCULAR HEMOGLOBIN 29.2 pg (27.0-33.0); MEAN CORPUSCULAR HGB CONC 30.7 g/dl (32.0-36.5); MONO # 0.6 10^3/uL (0.0-0.8); MONO % 9.7 % (2.0-8.0); NEUTROPHILS # 4.4 10^3/uL (1.5-8.5); PLATELET COUNT, AUTOMATED 205 10^3/uL (150-450); RED BLOOD COUNT 3.63 10^6/uL (4.30-6.10); WHITE BLOOD COUNT 6.5 10^3/uL (4.0-10.0)
[2024-05-25 14:51] LABS: KETONE, URINE AUTO RFX NEGATIVE (NEGATIVE); LEUKOCYTE ESTERASE UR AUTO RFX NEGATIVE (NEGATIVE); NITRITE, URINE AUTO RFX NEGATIVE (NEGATIVE); RBC, URINE AUTO RFX 0 /HPF (0-3); SQUAM EPITHELIAL CELL UR AURFX 0 /HPF (0-6); WBC, URINE AUTO RFX 0 /HPF (0-3)
[2024-05-25 15:13] LABS: AMPHETAMINES LEVEL URINE NEGATIVE (NEGATIVE); BARBITURATES URINE NEGATIVE (NEGATIVE); BENZODIAZEPINES URINE NEGATIVE (NEGATIVE)
[2024-05-25 15:14] LABS: CANNABINOIDS URINE NEGATIVE (NEGATIVE); COCAINE METABOLITE URINE NEGATIVE (NEGATIVE); OPIATES URINE NEGATIVE (NEGATIVE); PHENCYCLIDINE URINE NEGATIVE (NEGATIVE)
[2024-05-25 15:15] LABS: METHADONE URINE POSITIVE (NEGATIVE)
[2024-05-25 15:16] LABS: ETHYL ALCOHOL (ETHANOL) 0.004 % (0.000-0.010)
[2024-05-25 15:17] LABS: ALBUMIN 3.3 G/DL (3.2-5.2); ALKALINE PHOSPHATASE 89 U/L (40-129); ALT/SGPT 15 U/L (7.0-40); AST/SGOT 18 U/L (<34); BILIRUBIN,DIRECT < 0.1 MG/DL (<0.4); BILIRUBIN,TOTAL 0.3 MG/DL (0.3-1.2); BLOOD UREA NITROGEN 21 MG/DL (9-23); CALCIUM LEVEL 8.6 MG/DL (8.3-10.6); CARBON DIOXIDE LEVEL 30 MMOL/L (20-31); CHLORIDE LEVEL 105 MMOL/L (98-107); CREATININE FOR GFR 1.12 MG/DL (0.70-1.30); GLOMERULAR FILTRATION RATE > 60.0 (>42); GLUCOSE, FASTING 95 MG/DL (74-106); POTASSIUM SERUM 4.4 MMOL/L (3.5-5.1); SALICYLATE LEVEL < 3.0 MG/DL (<30); SODIUM LEVEL 141 MMOL/L (136-145); TOTAL PROTEIN 6.5 G/DL (5.7-8.2)
[2024-05-25 15:19] LABS: THYROID STIMULATING HORMONE 0.608 uIU/ML (0.55-4.78)
[2024-05-25] MEDS: METOCLOPRAMIDE INJ 10MG/2ML VIAL IV ONE (16:11)
[2024-05-25] MEDS ORDERED: FARX1TAB5 PO (22:49)
[2024-05-25] MEDS ORDERED: HOME MED LIST COMPLETE! XX SCH (22:50)
[2024-05-26] MEDS ORDERED: GLUCAGON INJ 1MG VIAL SC PRN (00:30)
[2024-05-26] MEDS ORDERED: GLUCOSE 4 GM CHEW PO PRN (00:30)
[2024-05-26] MEDS ORDERED: DEXTROSE 50% 50ML SYRINGE IV PRN (00:30)
[2024-05-26] MEDS ORDERED: cloNIDine 0.1MG TABLET PO PRN (00:30)
[2024-05-26] MEDS: METOCLOPRAMIDE INJ 10MG/2ML VIAL IV ONE (07:09)
[2024-05-26] MEDS: INSULIN LISPRO (NovoLOG) PER UNIT SC SCH ×2 (07:23→21:00)
[2024-05-26] MEDS: ACETAMINOPHEN 325 MG TAB PO PRN (07:27)
[2024-05-26] MEDS: VENLAFAXINE **XR** 37.5 MG CAPSULE PO SCH (09:34)
[2024-05-26] MEDS: ATORVASTATIN 20 MG TAB PO SCH (09:35)
[2024-05-26] MEDS: METHADONE 10MG TAB PO SCH (09:35)
[2024-05-26] MEDS: MAALOX 30 ML SUSP *UDC PO ONE (09:35)
[2024-05-26] MEDS: ASPIRIN 81MG ENTERIC TABLET PO SCH (09:35)
[2024-05-26] MEDS: buPROPion **XL** TABLET 150MG (WELLBUTRIN XL) PO SCH (09:36)
[2024-05-26 09:59] LABS: BASO % 0.5 % (0.0-1.0); EOS # 0.1 10^3/uL (0.0-0.5); EOS % 1.8 % (0.0-3.0); HEMATOCRIT 33.3 % (42.0-52.0); HEMOGLOBIN 10.4 g/dl (13.5-17.5); LYMPH # 1.6 10^3/uL (1.5-5.0); MEAN CORPUSCULAR HEMOGLOBIN 29.2 pg (27.0-33.0); MEAN CORPUSCULAR HGB CONC 31.2 g/dl (32.0-36.5); MEAN CORPUSCULAR VOLUME 93.5 fl (80.0-96.0); MONO # 0.6 10^3/uL (0.0-0.8); MONO % 10.8 % (2.0-8.0); NEUTROPHILS # 3.3 10^3/uL (1.5-8.5); NEUTROPHILS % 58.7 % (36.0-66.0); PLATELET COUNT, AUTOMATED 201 10^3/uL (150-450); RED BLOOD COUNT 3.56 10^6/uL (4.30-6.10); WHITE BLOOD COUNT 5.7 10^3/uL (4.0-10.0)
[2024-05-26 10:22] LABS: LIPASE 33 U/L (12-53)
[2024-05-26 10:24] LABS: ALBUMIN 3.1 G/DL (3.2-5.2); ALKALINE PHOSPHATASE 82 U/L (40-129); ALT/SGPT 15 U/L (7.0-40); AST/SGOT 16 U/L (<34); BILIRUBIN,DIRECT 0.1 MG/DL (<0.4); BILIRUBIN,TOTAL 0.4 MG/DL (0.3-1.2); BLOOD UREA NITROGEN 19 MG/DL (9-23); CALCIUM LEVEL 8.7 MG/DL (8.3-10.6); CARBON DIOXIDE LEVEL 29 MMOL/L (20-31); CHLORIDE LEVEL 109 MMOL/L (98-107); CREATININE FOR GFR 1.12 MG/DL (0.70-1.30); GLOMERULAR FILTRATION RATE > 60.0 (>42); GLUCOSE, FASTING 91 MG/DL (74-106); POTASSIUM SERUM 4.3 MMOL/L (3.5-5.1); SODIUM LEVEL 142 MMOL/L (136-145); TOTAL PROTEIN 6.3 G/DL (5.7-8.2)
[2024-05-26] MEDS: ENTRESTO 24-26MG TABLET (SACUBITRIL/VALSARTAN) PO SCH (10:42)
[2024-05-26 11:43] LABS: C REACTIVE PROTEIN QUANTITATIV 1.66 MG/DL (<1.0)
[2024-05-26 11:51] LABS: PROCALCITONIN 0.05 ng/ml
[2024-05-26 15:06] VITALS: BP 130/50; TEMP 97.6; O2SAT 94
[2024-05-26 20:07] VITALS: BP 138/56; TEMP 97.3; O2SAT 95
[2024-05-27] MEDS ORDERED: PERCOCET 5MG/325MG TAB PO PRN (00:55)
[2024-05-27 03:16] VITALS: BP 141/60; TEMP 97.5; O2SAT 96
[2024-05-27 05:39] LABS: HEMATOCRIT 36.3 % (42.0-52.0); HEMOGLOBIN 11.3 g/dl (13.5-17.5); MEAN CORPUSCULAR HEMOGLOBIN 29.7 pg (27.0-33.0); MEAN CORPUSCULAR HGB CONC 31.1 g/dl (32.0-36.5); MEAN CORPUSCULAR VOLUME 95.3 fl (80.0-96.0); PLATELET COUNT, AUTOMATED 216 10^3/uL (150-450); RED BLOOD COUNT 3.81 10^6/uL (4.30-6.10)
[2024-05-27 06:11] LABS: ALKALINE PHOSPHATASE 85 U/L (40-129); ALT/SGPT 16 U/L (7.0-40); AST/SGOT 15 U/L (<34); BILIRUBIN,TOTAL 0.3 MG/DL (0.3-1.2); BLOOD UREA NITROGEN 22 MG/DL (9-23); CALCIUM LEVEL 8.5 MG/DL (8.3-10.6); CARBON DIOXIDE LEVEL 31 MMOL/L (20-31); CHLORIDE LEVEL 104 MMOL/L (98-107); CREATININE FOR GFR 1.14 MG/DL (0.70-1.30); GLOMERULAR FILTRATION RATE > 60.0 (>42); GLUCOSE, FASTING 87 MG/DL (74-106); POTASSIUM SERUM 4.7 MMOL/L (3.5-5.1); SODIUM LEVEL 141 MMOL/L (136-145); TOTAL PROTEIN 6.5 G/DL (5.7-8.2)
[2024-05-27] MEDS: ENOXAPARIN 40MG/0.4ML SYRINGE (J1650 PER 10MG) SC SCH (08:47)
[2024-05-27 12:00] VITALS: BP 142/60; TEMP 97.9; O2SAT 95
[2024-05-27 19:58] VITALS: BP 160/60; TEMP 97.3; O2SAT 98
[2024-05-28 04:26] VITALS: BP 151/66; TEMP 97.5; O2SAT 94
[2024-05-28] MEDS ORDERED: ONDA-83 PO (09:23)
== END 2024-05-28 12:50 | disposition home health service (06) ==
LOC: M ED 13:23 → EDBD 13:23 → M ED INP 05-26 12:01 → M MS5PR 05-26 14:52
PROVIDERS: ADMIT Internal Medicine; ATTEND Internal Medicine
DX: R53.1 Weakness (principal); K80.20 Calculus of gallbladder without cholecystitis without obstruction; I50.22 Chronic systolic (congestive) heart failure; E11.40 Type 2 diabetes mellitus with diabetic neuropathy, unspecified; M54.9 Dorsalgia, unspecified; G89.29 Other chronic pain; E78.5 Hyperlipidemia, unspecified; F03.90 Unspecified dementia, unspecified severity, without behavioral disturbance, psychotic disturbance, mood disturbance, and anxiety; F41.9 Anxiety disorder, unspecified; F32.A Depression, unspecified; I49.3 Ventricular premature depolarization; R00.0 Tachycardia, unspecified; I44.7 Left bundle-branch block, unspecified; R11.0 Nausea; M19.90 Unspecified osteoarthritis, unspecified site; R26.2 Difficulty in walking, not elsewhere classified; R10.11 Right upper quadrant pain; K80.50 Calculus of bile duct without cholangitis or cholecystitis without obstruction; I11.0 Hypertensive heart disease with heart failure; F10.11 Alcohol abuse, in remission; N40.0 Benign prostatic hyperplasia without lower urinary tract symptoms; D50.9 Iron deficiency anemia, unspecified; Z87.891 Personal history of nicotine dependence; Z98.61 Coronary angioplasty status; Z91.199 Patient's noncompliance with other medical treatment and regimen due to unspecified reason; Z79.899 Other long term (current) drug therapy; Z79.82 Long term (current) use of aspirin; Z79.84 Long term (current) use of oral hypoglycemic drugs; Z79.891 Long term (current) use of opiate analgesic; Z88.8 Allergy status to other drugs, medicaments and biological substances; Z88.4 Allergy status to anesthetic agent
CPT/HCPCS: 36415; 70450; 71045; 76705; 80048; 80053; 80076; 80143; 80307; 81001; 82077; 82140; 83605; 83690; 84145; 84443; 85025; 85027; 86140; 87040; 87077; 87154; 87186; 87486; 87581; 87633; 87798; 93005; 93041; 94760; 96374; 96376; 97161; 99285; G0378; J1650; J1815; J2765

== ENCOUNTER 2024-06-15 13:35 | Observation (INO) | payer OTHER, MEDICAID ==
[~2024-06-15] VITALS: Ht 172.7 cm; Wt 90.1 kg
[~2024-06-15 13:35] MED LIST changes: +FARX1TAB5 PO; +ONDA-83 PO
[2024-06-15 14:20] LABS: BASO % 0.7 % (0.0-1.0); EOS # 0.1 10^3/uL (0.0-0.5); EOS % 1.5 % (0.0-3.0); HEMATOCRIT 36.3 % (42.0-52.0); HEMOGLOBIN 11.6 g/dl (13.5-17.5); LYMPH # 1.4 10^3/uL (1.5-5.0); LYMPH % 23.8 % (24.0-44.0); MEAN CORPUSCULAR HEMOGLOBIN 30.1 pg (27.0-33.0); MONO # 0.5 10^3/uL (0.0-0.8); MONO % 9.3 % (2.0-8.0); NEUTROPHILS # 3.7 10^3/uL (1.5-8.5); NEUTROPHILS % 64.4 % (36.0-66.0); PLATELET COUNT, AUTOMATED 210 10^3/uL (150-450); RED BLOOD COUNT 3.86 10^6/uL (4.30-6.10); WHITE BLOOD COUNT 5.8 10^3/uL (4.0-10.0)
[2024-06-15 14:48] LABS: CK-MB VALUE MASS 4.5 NG/ML (<3.6)
[2024-06-15 14:51] LABS: ALBUMIN 3.4 G/DL (3.2-5.2); ALKALINE PHOSPHATASE 87 U/L (40-129); ALT/SGPT 15 U/L (7.0-40); AST/SGOT 20 U/L (<34); BILIRUBIN,DIRECT < 0.1 MG/DL (<0.4); BILIRUBIN,TOTAL 0.3 MG/DL (0.3-1.2); BLOOD UREA NITROGEN 21 MG/DL (9-23); CALCIUM LEVEL 8.9 MG/DL (8.3-10.6); CARBON DIOXIDE LEVEL 27 MMOL/L (20-31); CHLORIDE LEVEL 105 MMOL/L (98-107); CREATININE FOR GFR 1.11 MG/DL (0.70-1.30); GLOMERULAR FILTRATION RATE > 60.0 (>42); GLUCOSE, FASTING 108 MG/DL (74-106); POTASSIUM SERUM 4.3 MMOL/L (3.5-5.1); SODIUM LEVEL 143 MMOL/L (136-145); TOTAL PROTEIN 6.9 G/DL (5.7-8.2)
[2024-06-15 14:52] LABS: THYROID STIMULATING HORMONE 0.653 uIU/ML (0.55-4.78)
[2024-06-15 15:32] LABS: KETONE, URINE AUTO RFX NEGATIVE (NEGATIVE); LEUKOCYTE ESTERASE UR AUTO RFX NEGATIVE (NEGATIVE); MUCUS, URINE RFX SMALL (NEGATIVE); NITRITE, URINE AUTO RFX NEGATIVE (NEGATIVE); RBC, URINE AUTO RFX 1 /HPF (0-3); SQUAM EPITHELIAL CELL UR AURFX 0 /HPF (0-6); WBC, URINE AUTO RFX 1 /HPF (0-3)
[2024-06-15 15:32] LABS: CPK CREATINE PHOSPHOKINASE 272 U/L (46-171); MB/CK RELATIVE INDEX 1.65 (< OR =4)
[2024-06-15 15:54] LABS: CK-MB VALUE MASS 3.9 NG/ML (<3.6)
[2024-06-15 16:04] LABS: MB/CK RELATIVE INDEX 1.41 (< OR =4)
[2024-06-15] MEDS ORDERED: MED REC COMMENT (17:06)
[2024-06-15] MEDS ORDERED: HOME MED LIST COMPLETE! XX SCH (17:10)
[2024-06-15] MEDS ORDERED: MAALOX 30 ML SUSP *UDC PO PRN (18:00)
[2024-06-15] MEDS ORDERED: INSULIN LISPRO (NovoLOG) PER UNIT SC SCH (18:00)
[2024-06-15] MEDS ORDERED: MOM 30ML SUSPENSION UDC PO PRN (18:00)
[2024-06-15] MEDS: ONDANSETRON 4MG 2ML VIAL IV ONE (18:04)
[2024-06-15] MEDS: ACETAMINOPHEN 325 MG TAB PO ONE (18:05)
[2024-06-15] MEDS ORDERED: GLUCAGON INJ 1MG VIAL SC PRN ×2 (18:10→19:30)
[2024-06-15] MEDS ORDERED: GLUCOSE 4 GM CHEW PO PRN ×2 (18:10→19:30)
[2024-06-15] MEDS ORDERED: DEXTROSE 50% 50ML SYRINGE IV PRN ×2 (18:10→19:30)
[2024-06-15 18:26] LABS: THYROID STIMULATING HORMONE 0.544 uIU/ML (0.55-4.78); THYROXINE (T4) 5.2 UG/DL (4.5-10.9)
[2024-06-15 18:28] LABS: FREE THYROXINE INDEX 2.4 % (1.4-3.8); T UPTAKE 46.6 % (22.5-37.0)
[2024-06-15] MEDS: INSULIN LISPRO (NovoLOG) PER UNIT SC SCH (21:05)
[2024-06-15] MEDS: hydrALAZINE 20MG/ML 1ML VIAL IV SCH (21:21)
[2024-06-15] MEDS: LR 1,000 ML IV SCH (21:24)
[2024-06-15] MEDS: ENTRESTO 24-26MG TABLET (SACUBITRIL/VALSARTAN) PO SCH (21:25)
[2024-06-16] MEDS: ONDANSETRON 4MG 2ML VIAL IV PRN (01:15)
[2024-06-16 06:11] LABS: HEMATOCRIT 36.4 % (42.0-52.0); HEMOGLOBIN 11.6 g/dl (13.5-17.5); MEAN CORPUSCULAR HEMOGLOBIN 29.4 pg (27.0-33.0); MEAN CORPUSCULAR HGB CONC 31.9 g/dl (32.0-36.5); MEAN CORPUSCULAR VOLUME 92.4 fl (80.0-96.0); PLATELET COUNT, AUTOMATED 229 10^3/uL (150-450); RED BLOOD COUNT 3.94 10^6/uL (4.30-6.10); WHITE BLOOD COUNT 5.6 10^3/uL (4.0-10.0)
[2024-06-16 06:32] LABS: BLOOD UREA NITROGEN 20 MG/DL (9-23); CALCIUM LEVEL 8.6 MG/DL (8.3-10.6); CARBON DIOXIDE LEVEL 28 MMOL/L (20-31); CHLORIDE LEVEL 106 MMOL/L (98-107); CREATININE FOR GFR 1.08 MG/DL (0.70-1.30); GLOMERULAR FILTRATION RATE > 60.0 (>42); GLUCOSE, FASTING 100 MG/DL (74-106); MAGNESIUM LEVEL 2.1 MG/DL (1.8-2.4); POTASSIUM SERUM 4.3 MMOL/L (3.5-5.1); SODIUM LEVEL 141 MMOL/L (136-145)
[2024-06-16 06:34] LABS: PERCENT SATURATION 11.2 % (19.7-50.0)
[2024-06-16 06:37] LABS: FERRITIN 21.1 NG/ML (10.5-307.3); FOLATE 15.51 NG/ML (>5.4)
[2024-06-16] MEDS: INSULIN LISPRO (NovoLOG) PER UNIT SC SCH (07:03)
[2024-06-16] MEDS: buPROPion **XL** TABLET 150MG (WELLBUTRIN XL) PO SCH (07:33)
[2024-06-16] MEDS: METHADONE 10MG TAB PO SCH (07:33)
[2024-06-16] MEDS: ENOXAPARIN 40MG/0.4ML SYRINGE (J1650 PER 10MG) SC SCH (07:33)
[2024-06-16] MEDS: ACETAMINOPHEN 325 MG TAB PO PRN (12:45)
[2024-06-16 14:28] VITALS: BP 134/62; TEMP 98.2; O2SAT 97
[2024-06-16 20:00] VITALS: BP 126/61; TEMP 97.4; O2SAT 96
[2024-06-17] MEDS: LIDOCAINE 5% (LIDODERM) PATCH TD ONE (01:31)
[2024-06-17 01:35] VITALS: BP 161/67; TEMP 98.1; O2SAT 95
[2024-06-17] MEDS: cloNIDine 0.1MG TABLET PO ONE (01:35)
[2024-06-17 04:08] VITALS: BP 115/58; TEMP 97.7; O2SAT 95
[2024-06-17 07:48] VITALS: BP 142/60; TEMP 98.2; O2SAT 93
[2024-06-17 07:59] LABS: HEMATOCRIT 36.7 % (42.0-52.0); HEMOGLOBIN 11.7 g/dl (13.5-17.5); MEAN CORPUSCULAR HEMOGLOBIN 29.5 pg (27.0-33.0); MEAN CORPUSCULAR HGB CONC 31.9 g/dl (32.0-36.5); MEAN CORPUSCULAR VOLUME 92.4 fl (80.0-96.0); PLATELET COUNT, AUTOMATED 214 10^3/uL (150-450); RED BLOOD COUNT 3.97 10^6/uL (4.30-6.10)
[2024-06-17 08:26] LABS: BLOOD UREA NITROGEN 17 MG/DL (9-23); CALCIUM LEVEL 9.4 MG/DL (8.3-10.6); CARBON DIOXIDE LEVEL 30 MMOL/L (20-31); CHLORIDE LEVEL 105 MMOL/L (98-107); CREATININE FOR GFR 1.15 MG/DL (0.70-1.30); GLOMERULAR FILTRATION RATE > 60.0 (>42); GLUCOSE, FASTING 85 MG/DL (74-106); POTASSIUM SERUM 4.7 MMOL/L (3.5-5.1); SODIUM LEVEL 144 MMOL/L (136-145)
[2024-06-17] MEDS: FERROUS GLUCONATE 324 MG TAB PO SCH (09:11)
[2024-06-17 12:06] VITALS: BP 106/69; TEMP 98.3; O2SAT 96
[2024-06-17 16:42] VITALS: BP 109/53; TEMP 98.2; O2SAT 95
[2024-06-17 20:04] VITALS: BP 148/70; TEMP 99.1; O2SAT 95
[2024-06-17] MEDS: CLOTRIMAZOLE 1% TOPICAL CREAM 30GM TOP SCH (22:16)
[2024-06-18] VITALS (10 sets, daily range): BP systolic 99–158; BP diastolic 52–70; TEMP 97.7–98.6; O2SAT 92–98
[2024-06-18] MEDS: MECLIZINE 12.5 MG TAB PO PRN (06:23)
[2024-06-19 03:25] VITALS: BP 134/63; TEMP 97.8; O2SAT 99
[2024-06-19 06:41] LABS: HEMATOCRIT 36.8 % (42.0-52.0); HEMOGLOBIN 11.7 g/dl (13.5-17.5); MEAN CORPUSCULAR HEMOGLOBIN 29.7 pg (27.0-33.0); MEAN CORPUSCULAR HGB CONC 31.8 g/dl (32.0-36.5); MEAN CORPUSCULAR VOLUME 93.4 fl (80.0-96.0); PLATELET COUNT, AUTOMATED 231 10^3/uL (150-450); RED BLOOD COUNT 3.94 10^6/uL (4.30-6.10); WHITE BLOOD COUNT 5.6 10^3/uL (4.0-10.0)
[2024-06-19 07:10] LABS: CREATININE FOR GFR 1.31 MG/DL (0.70-1.30); GLOMERULAR FILTRATION RATE 56.6 (>42); POTASSIUM SERUM 4.8 MMOL/L (3.5-5.1)
[2024-06-19 08:00] VITALS: BP 139/61; TEMP 98.1; O2SAT 93
[2024-06-19 12:00] VITALS: BP 118/59; TEMP 97.4; O2SAT 96
[2024-06-19 16:00] VITALS: BP 135/60; TEMP 98.6; O2SAT 96
[2024-06-19 19:20] VITALS: BP 138/63; TEMP 97.1; O2SAT 95
[2024-06-19 23:55] VITALS: BP 139/66; TEMP 97.1; O2SAT 98
[2024-06-20] VITALS (8 sets, daily range): BP systolic 124–150; BP diastolic 61–84; TEMP 97–97.8; O2SAT 92–98
[2024-06-20 06:03] LABS: HEMATOCRIT 36.9 % (42.0-52.0); HEMOGLOBIN 11.8 g/dl (13.5-17.5); MEAN CORPUSCULAR HEMOGLOBIN 29.6 pg (27.0-33.0); MEAN CORPUSCULAR VOLUME 92.5 fl (80.0-96.0); PLATELET COUNT, AUTOMATED 218 10^3/uL (150-450); RED BLOOD COUNT 3.99 10^6/uL (4.30-6.10); WHITE BLOOD COUNT 5.7 10^3/uL (4.0-10.0)
[2024-06-20 06:33] LABS: CALCIUM LEVEL 8.9 MG/DL (8.3-10.6); CREATININE FOR GFR 1.3 MG/DL (0.70-1.30); GLOMERULAR FILTRATION RATE 57.1 (>42); POTASSIUM SERUM 4.9 MMOL/L (3.5-5.1)
[2024-06-21] VITALS (7 sets, daily range): BP systolic 133–160; BP diastolic 54–92; TEMP 97.1–98.2; O2SAT 92–97
[2024-06-21 05:46] LABS: HEMOGLOBIN 11.1 g/dl (13.5-17.5); MEAN CORPUSCULAR HEMOGLOBIN 29.7 pg (27.0-33.0); MEAN CORPUSCULAR HGB CONC 31.7 g/dl (32.0-36.5); MEAN CORPUSCULAR VOLUME 93.6 fl (80.0-96.0); PLATELET COUNT, AUTOMATED 211 10^3/uL (150-450); RED BLOOD COUNT 3.74 10^6/uL (4.30-6.10); WHITE BLOOD COUNT 5.7 10^3/uL (4.0-10.0)
[2024-06-21 06:11] LABS: CREATININE FOR GFR 1.47 MG/DL (0.70-1.30); GLOMERULAR FILTRATION RATE 49.6 (>42)
[2024-06-21] MEDS: NS (Normal Saline) 0.9% 1,000 ML IV SCH (07:26)
[2024-06-21] MEDS: NS 500 ML IV ONE (07:36)
[2024-06-21 12:47] LABS: CALCIUM LEVEL 8.8 MG/DL (8.3-10.6); CREATININE FOR GFR 1.38 MG/DL (0.70-1.30); GLOMERULAR FILTRATION RATE 53.3 (>42); POTASSIUM SERUM 4.5 MMOL/L (3.5-5.1)
[2024-06-22 04:14] VITALS: BP 100/60; TEMP 98.2; O2SAT 96
[2024-06-22 07:28] LABS: CALCIUM LEVEL 8.8 MG/DL (8.3-10.6); CREATININE FOR GFR 1.26 MG/DL (0.70-1.30); GLOMERULAR FILTRATION RATE 59.2 (>42); POTASSIUM SERUM 4.8 MMOL/L (3.5-5.1)
[2024-06-22 08:00] VITALS: BP 161/68; TEMP 98; O2SAT 97
[2024-06-22] MEDS: VENLAFAXINE **XR** 37.5 MG CAPSULE PO SCH (08:32)
[2024-06-22 12:00] VITALS: BP 153/68; TEMP 97.9; O2SAT 96
[2024-06-22] MEDS ORDERED: FERR32TA PO (13:18)
[2024-06-22] MEDS ORDERED: MECL-136 PO (13:18)
== END 2024-06-22 15:30 | disposition home health service (06) ==
LOC: EDBD 13:35 → M ED 13:35 → M ED INP 13:36 → M MS4PR 06-16 14:19
PROVIDERS: ADMIT Student in an Organized Health Care Education/Training Program; ATTEND Student in an Organized Health Care Education/Training Program
DX: R42 Dizziness and giddiness (principal); R53.1 Weakness; R26.81 Unsteadiness on feet; I95.1 Orthostatic hypotension; N17.9 Acute kidney failure, unspecified; K80.20 Calculus of gallbladder without cholecystitis without obstruction; E11.42 Type 2 diabetes mellitus with diabetic polyneuropathy; D64.9 Anemia, unspecified; I11.0 Hypertensive heart disease with heart failure; I50.22 Chronic systolic (congestive) heart failure; R63.8 Other symptoms and signs concerning food and fluid intake; I95.0 Idiopathic hypotension; F03.A0 Unspecified dementia, mild, without behavioral disturbance, psychotic disturbance, mood disturbance, and anxiety; M19.90 Unspecified osteoarthritis, unspecified site; R79.89 Other specified abnormal findings of blood chemistry; F32.A Depression, unspecified; E78.5 Hyperlipidemia, unspecified; M54.9 Dorsalgia, unspecified; G89.29 Other chronic pain; I44.7 Left bundle-branch block, unspecified; I49.3 Ventricular premature depolarization; N40.0 Benign prostatic hyperplasia without lower urinary tract symptoms; Z87.891 Personal history of nicotine dependence; F10.11 Alcohol abuse, in remission; Z88.8 Allergy status to other drugs, medicaments and biological substances; Z79.899 Other long term (current) drug therapy; Z79.82 Long term (current) use of aspirin; Z79.84 Long term (current) use of oral hypoglycemic drugs; Z79.891 Long term (current) use of opiate analgesic
CPT/HCPCS: 36415; 70450; 70551; 71045; 76705; 80048; 80076; 81001; 82550; 82553; 82607; 82728; 82746; 83550; 83735; 84436; 84443; 84479; 84484; 85025; 85027; 87486; 87581; 87633; 87798; 93005; 93041; 94760; 96361; 96372; 96374; 96376; 97116; 97161; 97165; 97530; 97535; 99285; G0378; J1650; J1815; J2405

== ENCOUNTER 2024-10-26 10:16 | Emergency (ER) | payer OTHER, MEDICAID, MEDICARE ==
[~2024-10-26] VITALS: Ht 172.7 cm; Wt 79.5 kg
[~2024-10-26 10:16] MED LIST changes: +FERR32TA PO; +MECL-136 PO; +MED REC COMMENT; +SENN-225 PO; -SENO8.6T5 PO
[2024-10-26 10:30] VITALS: BP 142/64; TEMP 99; O2SAT 100
[2024-10-26 11:16] LABS: BASO # 0.0 10^3/uL (0.0-0.2); BASO % 0.3 % (0.0-1.0); EOS # 0.1 10^3/uL (0.0-0.5); EOS % 1.1 % (0.0-3.0); LYMPH # 1.5 10^3/uL (1.5-5.0); LYMPH % 16.2 % (24.0-44.0); MONO # 0.8 10^3/uL (0.0-0.8); MONO % 9.0 % (2.0-8.0); NEUTROPHILS # 6.8 10^3/uL (1.5-8.5); NEUTROPHILS % 72.8 % (36.0-66.0); PLATELET COUNT, AUTOMATED 221 10^3/uL (150-450)
[2024-10-26 11:42] LABS: CALCIUM LEVEL 8.5 MG/DL (8.3-10.6); CARBON DIOXIDE LEVEL 26.0 MMOL/L (20-31); CHLORIDE LEVEL 107.0 MMOL/L (98-107); CREATININE FOR GFR 1.59 MG/DL (0.70-1.30); GLOMERULAR FILTRATION RATE 44.4 (>42); POTASSIUM SERUM 4.6 MMOL/L (3.5-5.1); SODIUM LEVEL 145.0 MMOL/L (136-145)
[2024-10-26] MEDS: ONDANSETRON 4MG 2ML VIAL IV ONE (11:47)
[2024-10-26 12:00] LABS: ALT/SGPT 18.0 U/L (7.0-40); AST/SGOT 25.0 U/L (<34)
[2024-10-26 14:10] LABS: KETONE, URINE AUTO RFX NEGATIVE (NEGATIVE); LEUKOCYTE ESTERASE UR AUTO RFX NEGATIVE (NEGATIVE); NITRITE, URINE AUTO RFX NEGATIVE (NEGATIVE); RBC, URINE AUTO RFX 1 /HPF (0-3); SQUAM EPITHELIAL CELL UR AURFX 0 /HPF (0-6); WBC, URINE AUTO RFX 1 /HPF (0-3)
[2024-10-26] MEDS ORDERED: HOME MED LIST COMPLETE! XX SCH (14:15)
[2024-10-26] MEDS ORDERED: METO10TA2 PO (14:50)
== END 2024-10-26 15:53 | disposition home or self-care (01) ==
LOC: EDBD 10:16 → M ED 10:16
DX: R11.0 Nausea (principal); I44.7 Left bundle-branch block, unspecified; I45.81 Long QT syndrome; D50.9 Iron deficiency anemia, unspecified; E11.9 Type 2 diabetes mellitus without complications; I50.22 Chronic systolic (congestive) heart failure; I11.0 Hypertensive heart disease with heart failure; E78.5 Hyperlipidemia, unspecified; N40.0 Benign prostatic hyperplasia without lower urinary tract symptoms; N18.30 Chronic kidney disease, stage 3 unspecified; Z88.5 Allergy status to narcotic agent; Z88.8 Allergy status to other drugs, medicaments and biological substances; Z79.1 Long term (current) use of non-steroidal anti-inflammatories (NSAID); Z79.84 Long term (current) use of oral hypoglycemic drugs; Z79.899 Other long term (current) drug therapy
CPT/HCPCS: 71045; 80048; 80076; 81001; 83605; 83690; 84484; 85025; 87040; 93005; 96374; 99284; J2405

== ENCOUNTER → 2025-01-26 | Outpatient (CLI) | payer OTHER, MEDICAID ==
[~2025-01-26] MED LIST changes: +METO10TA2 PO
[2025-01-26 10:34] LABS: PLATELET COUNT, AUTOMATED 404 10^3/uL (150-450)
[2025-01-26 10:50] LABS: ESTIMATED AVERAGE GLUCOSE 131.0 MG/DL (60-110)
[2025-01-26 11:09] LABS: IRON (FE) 37.0 UG/DL (65-175)
[2025-01-26 11:10] LABS: ALT/SGPT 21.0 U/L (7.0-40); AST/SGOT 20.0 U/L (<34); CALCIUM LEVEL 9.0 MG/DL (8.3-10.6); CARBON DIOXIDE LEVEL 30.0 MMOL/L (20-31); CHLORIDE LEVEL 101.0 MMOL/L (98-107); CHOLESTEROL LEVEL 137.0 MG/DL (<200); CHOLESTEROL RISK RATIO 2.8 (<5); CREATININE FOR GFR 1.5 MG/DL (0.70-1.30); GLOMERULAR FILTRATION RATE 47.7 (>42); LDL CHOLESTEROL 66.9 MG/DL (<100); NON-HDL-C 88.1 MG/DL; POTASSIUM SERUM 4.6 MMOL/L (3.5-5.1); PTH INTACT 85.3 PG/ML (18.5-88.0); SODIUM LEVEL 141.0 MMOL/L (136-145); TRIGLYCERIDES LEVEL 106.0 MG/DL (<150)
[2025-01-26 11:11] LABS: VITAMIN B12 LEVEL 462.0 PG/ML (211-911)
== END ==
LOC: M PLALAB 09:30
PROVIDERS: ATTEND Family Medicine
DX: E78.1 Pure hyperglyceridemia (principal); D50.8 Other iron deficiency anemias; E11.21 Type 2 diabetes mellitus with diabetic nephropathy; G31.84 Mild cognitive impairment of uncertain or unknown etiology; I11.0 Hypertensive heart disease with heart failure; E11.42 Type 2 diabetes mellitus with diabetic polyneuropathy